=== PATIENT | female | born 1950 | race Caucasian/White ===

== ENCOUNTER 2016-11-10 00:07 | Emergency (ER) | payer MEDICARE, BC ==
[2016-11-10 00:37] VITALS: BP 197/73
[2016-11-10] MEDS ORDERED: Sodium Chloride 0.9% 5 ML Syringe FLUSH PRN (00:39)
[2016-11-10] MEDS ORDERED: Sodium Chloride 0.9% 1,000 ML IV STA (00:39)
[2016-11-10] MEDS ORDERED: Morphine 2 MG/ML Syringe IVPUSH ONE (00:46)
[2016-11-10] MEDS ORDERED: Ondansetron 4 MG/2 ML SDV IVPUSH ONE (00:46)
--- NOTE | 2016-11-10 00:47 | EDM.PDOC ---
ED HPI GENERAL MEDICAL PROBLEM - General Chief Complaint: Abdominal Pain Stated Complaint: Abdominal Pain Time Seen by Provider: 11/10/16 00:30 Source of Information: Reports: Patient History Limitations: Reports: No Limitations - History of Present Illness INITIAL COMMENTS - FREE TEXT/NARRATIVE: PT STATES SHE HAS HAD 3 CONSECUTIVE DAYS WITH ONE EPISODE OF ABD PAIN AND VOMITING, AND TONIGHT AT 2000 DEVELOPED WORSENING LOWER ABD PAIN AND VOMITED ONCE. DENIES CP, SOB, BOWEL CHANGES, BLOOD IN STOOL, FEVER, VAGINAL BLEEDING, OR CHANGE IN MEDICATION. Duration: Getting Worse Location: Reports: Abdomen Quality: Reports: Sharp Severity: Moderate Improves with: Reports: Other (SPONTANEOUSLY) Associated Symptoms: Reports: Nausea/Vomiting Lower Abdominal Pain Score (Numeric/FACES): 10 - Related Data Allergies Allergy/AdvReac Type Severity Reaction Status Date / Time No Known Drug Allergies Allergy none Verified 11/10/16 00:20 Home Meds: Home Meds Aspirin [Ecotrin] 81 mg PO DAILY 11/10/16 [History] Ciprofloxacin [Cipro] 500 mg PO BID #20 tab 11/10/16 [Rx] Insulin Aspart [NovoLOG] 4 - 15 units SUBCUT QID PRN 11/10/16 [History] Insulin Glarg,Human.Rec.Analog [LantUS Solostar] 10 units SUBCUT BEDTIME [History] Lisinopril [Prinivil] 2.5 mg PO DAILY 11/10/16 [History] Metoprolol Tartrate 25 mg PO BID 11/10/16 [History] Ondansetron [Zofran ODT] 4 mg PO Q6H #10 tab.dis 11/10/16 [Rx] Phenazopyridine HCl [Pyridium] 100 mg PO TID #6 tablet 11/10/16 [Rx] Prasugrel HCl [Effient] 10 mg PO DAILY 11/10/16 [History] atorvaSTATin [Lipitor] 40 mg PO DAILY 11/10/16 [History] Past Medical History HEENT History: Reports: Cataract, Impaired Vision Gastrointestinal History: Reports: None Genitourinary History: Reports: None 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: - Infectious Disease History Infectious Disease History: Reports: Chicken Pox, Measles, Shingles - Past Surgical History HEENT Surgical History: Reports: Cataract Surgery, Tonsillectomy Female Surgical History: Reports: D&C, Tubal Ligation Social & Family History - Tobacco Use Smoking Status *Q: Never Smoker Years of Tobacco use: 2 Month Tobacco Last Used: 50 yrs ago - Caffeine Use Caffeine Use: Reports: Soda Other Caffeine Use: alot of coke - Alcohol Use Days Per Week of Alcohol Use: 0 - Recreational Drug Use Recreational Drug Use: No ED ROS GENERAL - Review of Systems Review Of Systems: ROS reveals no pertinent complaints other than HPI. Constitutional: Reports: No Symptoms HEENT: Reports: No Symptoms Respiratory: Reports: No Symptoms Cardiovascular: Reports: No Symptoms Endocrine: Reports: No Symptoms GI/Abdominal: Reports: Abdominal Pain, Nausea, Vomiting : Reports: No Symptoms Musculoskeletal: Reports: No Symptoms Skin: Reports: No Symptoms Neurological: Reports: No Symptoms Psychiatric: Reports: No Symptoms Hematologic/Lymphatic: Reports: No Symptoms Immunologic: Reports: No Symptoms ED EXAM, GI/ABD - Physical Exam Exam: See Below Exam Limited By: No Limitations General Appearance: Alert, WD/WN, No Apparent Distress Eyes: Bilateral: Normal Appearance Throat/Mouth: Normal Inspection, Normal Oropharynx, No Airway Compromise Head: Atraumatic, Normocephalic Neck: Normal Inspection Respiratory/Chest: No Respiratory Distress, Lungs Clear, Normal Breath Sounds, No Accessory Muscle Use, Chest Non-Tender Cardiovascular: Regular Rate, Rhythm, No Murmur GI/Abdominal: Normal Bowel Sounds, Soft, No Organomegaly, No Distention, No Abnormal Bruit, No Mass, Tenderness (LOWER ABD) Back Exam: Normal Inspection. No: CVA Tenderness (L), CVA Tenderness (R) Extremities: Normal Inspection, Non-Tender, No Pedal Edema, Normal Capillary Refill. No: Leg Pain Neurological: Alert, Oriented, Normal Cognition Psychiatric: Normal Affect, Normal Mood Skin Exam: Warm, Dry, Intact, Normal Color, No Rash Lymphatic: No Adenopathy Course - Vital Signs Last Recorded V/S: Last Vital Signs Temp 97.4 F 11/10/16 00:30 Pulse 75 11/10/16 00:30 Resp 18 11/10/16 00:30 BP 197/73 H 11/10/16 00:30 Pulse Ox 96 11/10/16 00:30 - Orders/Labs/Meds Orders: Active Orders 24 hr Category Date Time Status Peripheral IV Care [RC] . DIRECTED Care 11/10/16 00:41 Ordered Abdomen Pelvis w Cont [CT] Stat Exams 11/10/16 00:39 Ordered CBC WITH AUTO DIFF [HEME] Stat Lab 11/10/16 00:39 Ordered COMPREHENSIVE METABOLIC PN,CMP [CHEM] Stat Lab 11/10/16 00:39 Ordered LIPASE [CHEM] Stat Lab 11/10/16 00:39 Ordered UA W/MICROSCOPIC [URIN] Stat Lab 11/10/16 00:39 Uncollected Sodium Chloride 0.9% [Normal Saline] 1,000 ml Med 11/10/16 00:39 Ordered IV .BOLUS Sodium Chloride 0.9% [Syrex Flush] Med 11/10/16 00:39 Ordered 5 ml FLUSH Q8HR PRN Peripheral IV Insertion Adult [OM.PC] Stat Oth 11/10/16 00:39 Ordered - Re-Assessments/Exams Free Text/Narrative Re-Assessment/Exam: 11/10/16 02:31 PT AFEBRILE, NONTOXIC APPEARING, PAIN RELIEVED. ROCEPHIN GIVEN Departure - Departure Time of Disposition: 02:38 Disposition: Home, Self-Care 01 Condition: good Clinical Impression: UTI (urinary tract infection) - Discharge Information Instructions: Nausea and Vomiting, Adult, [id number], Abdominal Pain, Adult, [id number], Urinary Tract Infection, Adult Forms: ED Department Discharge Additional Instructions: FOLLOW UP WITH YOUR PRIMARY DOCTOR IN 3-5 DAYS. RETURN TO ER SOONER IF SYMPTOMS CONTINUE - My Orders Last 24 Hours: My Active Orders 11/10/16 00:39 Abdomen Pelvis w Cont [CT] Stat CBC WITH AUTO DIFF [HEME] Stat COMPREHENSIVE METABOLIC PN,CMP [CHEM] Stat LIPASE [CHEM] Stat UA W/MICROSCOPIC [URIN] Stat Sodium Chloride 0.9% [Normal Saline] 1,000 ml IV .BOLUS Sodium Chloride 0.9% [Syrex Flush] 5 ml FLUSH Q8HR PRN Peripheral IV Insertion Adult [OM.PC] Stat 11/10/16 00:41 Peripheral IV Care [RC] . DIRECTED - Assessment/Plan Last 24 Hours: My Active Orders 11/10/16 00:39 Abdomen Pelvis w Cont [CT] Stat CBC WITH AUTO DIFF [HEME] Stat COMPREHENSIVE METABOLIC PN,CMP [CHEM] Stat LIPASE [CHEM] Stat UA W/MICROSCOPIC [URIN] Stat Sodium Chloride 0.9% [Normal Saline] 1,000 ml IV .BOLUS Sodium Chloride 0.9% [Syrex Flush] 5 ml FLUSH Q8HR PRN Peripheral IV Insertion Adult [OM.PC] Stat 11/10/16 00:41 Peripheral IV Care [RC] . DIRECTED Assessment:: UTI Plan: CIPRO / PYRIDIUM / F-U WITH PCP IN 3-5 DAYS
[2016-11-10] MEDS ORDERED: Iopamidol 612 MG/ML 75 ML Bottle IVPUSH ONE (00:52)
[2016-11-10] MEDS ORDERED: Sodium Chloride 0.9% 50 ML SDV FLUSH SCH (01:00)
[2016-11-10 01:02] LABS: CHLORIDE,CL 100 mmol/L (98-115); SODIUM,NA 137 mmol/L (136-145)
[2016-11-10] MEDS ORDERED: cefTRIAXone 1 GM Vial IVPUSH ONE (01:31)
== END 2016-11-10 02:45 | disposition home or self-care (01) ==
LOC: KA.ED 00:07
DX: N39.0 Urinary tract infection, site not specified (principal); Z79.82 Long term (current) use of aspirin; Z79.4 Long term (current) use of insulin; Z79.899 Other long term (current) drug therapy
CPT/HCPCS: 36415; 74177; 80053; 81001; 83690; 85025; 87086; 87088; 96361; 96374; 96375; 99284; J0696; J2270; J2405; J7030; Q9967; 87186

== ENCOUNTER 2017-12-25 07:07 | Emergency (ER) | payer MEDICARE, BC ==
[2017-12-25] MEDS ORDERED: Sodium Chloride 0.9% 5 ML Syringe FLUSH PRN (07:25)
[2017-12-25 07:30] VITALS: BP 122/64
[2017-12-25] MEDS: Ondansetron 4 MG/2 ML SDV IVPUSH ONE (07:44)
[2017-12-25] MEDS: Sodium Chloride 0.9% 1,000 ML ONE (08:41)
[2017-12-25] MEDS: Sodium Chloride 0.9% 1,000 ML IV SCH (08:41)
[2017-12-25 09:18] LABS: ANION GAP 23.1 mmol/L (5-15); CHLORIDE,CL 104 mmol/L (98-115); SODIUM,NA 142 mmol/L (136-145)
[2017-12-25] MEDS: Ketorolac 30 MG/ML SDV IVPUSH ONE (10:09)
[2017-12-25] MEDS: Ondansetron 4 MG Tab.DIS PO ONE (11:11)
[2017-12-25] MEDS: Meclizine 25 MG Tab PO ONE (11:11)
== END 2017-12-25 13:00 | disposition home or self-care (01) ==
LOC: KA.ED 07:07
DX: H81.10 Benign paroxysmal vertigo, unspecified ear (principal); I25.10 Atherosclerotic heart disease of native coronary artery without angina pectoris; E78.5 Hyperlipidemia, unspecified; E11.9 Type 2 diabetes mellitus without complications; Z95.1 Presence of aortocoronary bypass graft
CPT/HCPCS: 70450; 71046; 80053; 81001; 82550; 82553; 82962; 84484; 85025; 93005; 96361; 96374; 96375; 99284; A9270-GY; J1885; J2405; J7030

== ENCOUNTER 2021-02-06 20:43 | Inpatient (IN) | payer MEDICARE, BC ==
[2021-02-06] MEDS ORDERED: Sodium Chloride 0.9% 1,000 ML IV ONE (20:55)
[2021-02-06] MEDS ORDERED: Sodium Chloride 0.9% 10 ML Syringe FLUSH PRN (20:55)
--- NOTE | 2021-02-06 21:04 | EDM.PDOC ---
ED HPI GENERAL MEDICAL PROBLEM - General Chief Complaint: General Stated Complaint: HYPERGLYCEMIA Time Seen by Provider: 02/06/21 20:45 Source of Information: Reports: Patient History Limitations: Reports: No Limitations - History of Present Illness INITIAL COMMENTS - FREE TEXT/NARRATIVE: 70 YO WF PRESENTS TO ER WITH COMPLAINTS OF ELEVATED BLOOD SUGARS WITH POLYDIPSIA, POLYURIA, AND LIGHTHEADEDNESS WHICH HAS BEEN ON/OFF X 1 WEEK. PT REPORTS SHE HASN'T BEEN TAKING HER INSULIN FOR HER TYPE 1 DIABETES BECAUSE IT'S TOO EXPENSIVE. PT DENIES CHEST PAIN, SHORTNES OF BREATH, DIAPHORESIS OR NAUSEA/VOMITING. PT DENIES FEVER/CHILLS, NO RECENT ILLNESSES, NO COUGH/CONGESTION OR KNOWN COVID EXPOSURES. PT DENIES ABDOMINAL PAIN OR CONSTIPATION/DIARRHEA. PT DENIES DYSURIA OR URGENCY BUT STATES SHE HAS HAD URINARY FREQENCY OVER THE LAST 2 WEEKS. PT IS ALERT AND ORIENTED X 4 WITHOUT CONFUSION. Onset: Unknown/Unsure Duration: Getting Worse Location: Reports: Generalized Severity: Moderate Improves with: Reports: None Worsens with: Reports: None Associated Symptoms: Reports: Weakness. Denies: Confusion, Chest Pain, Cough, cough w sputum, Diaphoresis, Fever/Chills, Headaches, Loss of Appetite, Nausea/Vomiting, Rash, Seizure, Shortness of Breath - Related Data Allergies Allergy/AdvReac Type Severity Reaction Status Date / Time No Known Drug Allergies Allergy none Verified 05/13/18 19:20 Home Meds: Home Meds Aspirin [Ecotrin EC] 81 mg PO DAILY 11/10/16 [History] Metoprolol Tartrate 25 mg PO BID 11/10/16 [History] Prasugrel HCl [Effient] 10 mg PO DAILY 11/10/16 [History] Insulin Degludec [Tresiba Flextouch U-200] 20 units SQ BEDTIME 12/25/17 [History] metFORMIN HCl [Metformin HCl] 500 mg PO BID 12/25/17 [History] Fluconazole [Diflucan] 150 mg PO ONETIME #2 tab 05/13/18 [Rx] Past Medical History HEENT History: Reports: Cataract, Impaired Vision Cardiovascular History: Reports: Hypertension, [place], Stents Gastrointestinal History: Reports: None Genitourinary History: Reports: None 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: Neurological History: Reports: Headaches, Chronic Endocrine/Metabolic History: Reports: Diabetes, Type II - Infectious Disease History Infectious Disease History: Reports: Chicken Pox, Measles, Shingles - Past Surgical History HEENT Surgical History: Reports: Cataract Surgery, Tonsillectomy Cardiovascular Surgical History: Reports: Coronary Artery Stent Female Surgical History: Reports: D&C, Tubal Ligation Social & Family History - Family History Family Medical History: No Pertinent Family History - Caffeine Use Caffeine Use: Reports: Soda Other Caffeine Use: alot of coke ED ROS GENERAL - Review of Systems Review Of Systems: See Below Constitutional: Reports: Weakness HEENT: Reports: No Symptoms Respiratory: Reports: No Symptoms Cardiovascular: Reports: No Symptoms Endocrine: Reports: No Symptoms GI/Abdominal: Reports: No Symptoms : Reports: Frequency Musculoskeletal: Reports: No Symptoms Skin: Reports: No Symptoms Neurological: Reports: Dizziness Psychiatric: Reports: No Symptoms Hematologic/Lymphatic: Reports: No Symptoms ED EXAM, GENERAL - Physical Exam Exam: See Below Exam Limited By: No Limitations General Appearance: Alert, WD/WN, No Apparent Distress Throat/Mouth: Normal Inspection, Normal Lips, Normal Teeth, Normal Gums, Normal Oropharynx, Normal Voice, No Airway Compromise Head: Atraumatic, Normocephalic Neck: Normal Inspection, Supple, Non-Tender, Full Range of Motion Respiratory/Chest: No Respiratory Distress, Lungs Clear, Normal Breath Sounds, No Accessory Muscle Use, Chest Non-Tender Cardiovascular: Normal Peripheral Pulses, Regular Rate, Rhythm, No Edema, No Gallop, No JVD, No Murmur, No Rub GI/Abdominal: Normal Bowel Sounds, Soft, Non-Tender, No Organomegaly, No Distention, No Abnormal Bruit, No Mass Back Exam: Normal Inspection, Full Range of Motion, NT Extremities: Normal Inspection, Normal Range of Motion, Non-Tender, Normal Capillary Refill, No Pedal Edema Neurological: Alert, Oriented, CN II-XII Intact, Normal Cognition, Normal Gait, No Motor/Sensory Deficits Psychiatric: Normal Affect, Normal Mood Skin Exam: Warm, Dry, Intact, Normal Color, No Rash Course - Orders/Labs/Meds Orders: Active Orders 24 hr Category Date Time Status Peripheral IV Care [RC] . DIRECTED Care 02/06/21 20:55 Active Chest 2V [CR] Stat Exams 02/06/21 20:55 Taken ACETONE,URINE [URCHEM] Stat Lab 02/06/21 20:55 Ordered CORONAVIRUS COVID-19 RAPID [MOLEC] Stat Lab 02/06/21 20:55 Ordered UA W/MICROSCOPIC [URIN] Stat Lab 02/06/21 20:55 Ordered Sodium Chloride 0.9% [Saline Flush] Med 02/06/21 20:55 Active 10 ml FLUSH Q8HR PRN Peripheral IV Insertion Adult [OM.PC] Routine Oth 02/06/21 20:55 Ordered Medication Orders Sodium Chloride (Sodium Chloride 0.9% 10 Ml Syringe) 10 ml FLUSH Q8HR PRN PRN Reason: keep vein open Labs: Laboratory Tests 02/06/21 02/06/21 02/06/21 Range/Units 20:49 20:55 20:55 WBC 5.96 (5.00-10.00) 10^3/uL RBC 5.49 (3.80-5.50) 10^6/uL Hgb 16.0 (12.0-16.0) g/dL Hct 43.8 (37.0-47.0) % MCV 79.8 L D (82.0-92.0) fL MCH 29.1 (27.0-31.0) pg MCHC 36.5 H (32.0-36.0) g/dL RDW 11.7 (11.5-14.5) % Plt Count 198 (150-400) 10^3/uL MPV 11.3 H (7.4-10.4) fL Immature Gran % (Auto) 0.2 (0.0-5.0) % Neut % (Auto) 54.8 (50.0-70.0) % Lymph % (Auto) 35.4 (20.0-40.0) % [place] % (Auto) 8.4 H (2.0-8.0) % Eos % (Auto) 0.7 L (1.0-3.0) % Baso % (Auto) 0.5 (0.0-1.0) % Neut # (Auto) 3.27 (2.50-7.00) 10^3/uL Lymph # (Auto) 2.11 (1.00-4.00) 10^3/uL [place] # (Auto) 0.50 (0.10-0.80) 10^3/uL Eos # (Auto) 0.04 L (0.10-0.30) 10^3/uL Baso # (Auto) 0.03 (0.00-0.10) 10^3/uL Immature Gran # (Auto) 0.01 (0.00-0.50) 10^3/uL VBG pH 7.50 H (7.31-7.41) VBG pCO2 37 L (41-51) mmHG VBG pO2 17 mmHG VBG HCO3 29 H (23-28) mmol/L VBG Total CO2 29 mmol/L VBG O2 Saturation 29 % VBG Base Excess 6 H ((-2)-3) mmol/L O2 Delivery Device Room air Sodium (136-145) mmol/L Potassium (3.5-5.1) mmol/L Chloride (98-107) mmol/L Carbon Dioxide (21.0-32.0) mmol/L Anion Gap (5-15) mmol/L BUN (7-18) mg/dL Creatinine (0.51-1.17) mg/dL Est Cr Clr Drug Dosing Estimated GFR (MDRD) mL/min Glucose (70-140) mg/dL POC Glucose > 600 H* (70-140) mg/dL Calcium (8.7-10.3) mg/dL Total Bilirubin (0.2-1.0) mg/dL AST (15-37) U/L ALT (14-63) U/L Alkaline Phosphatase (46-116) U/L Total Protein (6.4-8.2) g/dL Albumin (3.40-5.00) g/dL 02/06/21 Range/Units 20:55 WBC (5.00-10.00) 10^3/uL RBC (3.80-5.50) 10^6/uL Hgb (12.0-16.0) g/dL Hct (37.0-47.0) % MCV (82.0-92.0) fL MCH (27.0-31.0) pg MCHC (32.0-36.0) g/dL RDW (11.5-14.5) % Plt Count (150-400) 10^3/uL MPV (7.4-10.4) fL Immature Gran % (Auto) (0.0-5.0) % Neut % (Auto) (50.0-70.0) % Lymph % (Auto) (20.0-40.0) % [place] % (Auto) (2.0-8.0) % Eos % (Auto) (1.0-3.0) % Baso % (Auto) (0.0-1.0) % Neut # (Auto) (2.50-7.00) 10^3/uL Lymph # (Auto) (1.00-4.00) 10^3/uL [place] # (Auto) (0.10-0.80) 10^3/uL Eos # (Auto) (0.10-0.30) 10^3/uL Baso # (Auto) (0.00-0.10) 10^3/uL Immature Gran # (Auto) (0.00-0.50) 10^3/uL VBG pH (7.31-7.41) VBG pCO2 (41-51) mmHG VBG pO2 mmHG VBG HCO3 (23-28) mmol/L VBG Total CO2 mmol/L VBG O2 Saturation % VBG Base Excess ((-2)-3) mmol/L O2 Delivery Device Sodium 134 L (136-145) mmol/L Potassium 2.5 L (3.5-5.1) mmol/L Chloride 91 L (98-107) mmol/L Carbon Dioxide 30.3 (21.0-32.0) mmol/L Anion Gap 15.2 H (5-15) mmol/L BUN 16 (7-18) mg/dL Creatinine 1.18 H (0.51-1.17) mg/dL Est Cr Clr Drug Dosing TNP Estimated GFR (MDRD) 45 mL/min Glucose > 500 H (70-140) mg/dL POC Glucose (70-140) mg/dL Calcium 9.9 (8.7-10.3) mg/dL Total Bilirubin 0.8 (0.2-1.0) mg/dL AST 20 (15-37) U/L ALT 28 (14-63) U/L Alkaline Phosphatase 70 (46-116) U/L Total Protein 7.1 (6.4-8.2) g/dL Albumin 3.64 (3.40-5.00) g/dL Meds: Medications Generic Name Dose Route Start Last Admin Trade Name Freq PRN Reason Stop Dose Admin Sodium Chloride 10 ml 02/06/21 20:55 Sodium Chloride 0.9% 10 Ml Syringe FLUSH Q8HR PRN keep vein open Discontinued Medications Generic Name Dose Route Start Last Admin Trade Name Fina PRN Reason Stop Dose Admin Sodium Chloride 1,000 mls @ 999 mls/hr 02/06/21 20:55 Normal Saline IV 02/06/21 21:55 .BOLUS ONE Insulin Human Regular 15 unit 02/06/21 21:31 Insulin Regular, Human 100 Units/Ml 10 Ml Vial SUBCUT 02/06/21 21:32 ONETIME ONE Departure - Departure Time of Disposition: 22:21 Disposition: Admitted As Inpatient 64 Condition: Fair Clinical Impression: Hyperosmolar hyperglycemic state (HHS), Hypokalemia - Discharge Information Referrals: Karen Perrin MD [Physician] - Forms: ED Department Discharge - My Orders Last 24 Hours: My Active Orders 02/06/21 20:55 Peripheral IV Care [RC] . DIRECTED Chest 2V [CR] Stat ACETONE,URINE [URCHEM] Stat CORONAVIRUS COVID-19 RAPID [MOLEC] Stat UA W/MICROSCOPIC [URIN] Stat Sodium Chloride 0.9% [Saline Flush] 10 ml FLUSH Q8HR PRN Peripheral IV Insertion Adult [OM.PC] Routine - Assessment/Plan Last 24 Hours: My Active Orders 02/06/21 20:55 Peripheral IV Care [RC] . DIRECTED Chest 2V [CR] Stat ACETONE,URINE [URCHEM] Stat CORONAVIRUS COVID-19 RAPID [MOLEC] Stat UA W/MICROSCOPIC [URIN] Stat Sodium Chloride 0.9% [Saline Flush] 10 ml FLUSH Q8HR PRN Peripheral IV Insertion Adult [OM.PC] Routine Assessment:: 1. HYPEROSMOLAR HYPERGLYCEMIA 2. HYPOKALEMIA MOST LIKELY DUE TO SIGNIFICANT HYPERGLYCEMIA Plan: 1. ADMIT TO MEDICINE- [facility]-ACCEPTED ADMISSION @22:15 2. CONTINUE IVF 3. INSULIN PER SLIDING SCALE 4. WATCH POTASSIUM AND CORRECT NEEDED 5. SUPPORTIVE CARE 6. ALL ADMISSION ORDERS PER [facility]
[2021-02-06 21:19] LABS: O2 DELIVERY DEVICE ROOM AIR
[2021-02-06 21:21] LABS: PCO2 VENOUS 37 mmHG (41-51)
[2021-02-06 21:22] LABS: BASE EXCESS VENOUS 6 mmol/L ((-2)-3); BICARBONATE,VENOUS 29 mmol/L (23-28); O2 SATURATION VENOUS 29 %; PO2 VENOUS 17 mmHG
[2021-02-06] MEDS ORDERED: Insulin Regular, Human 100 Units/ML 10 ML Vial SUBCUT ONE (21:31)
[2021-02-06 21:36] LABS: ANION GAP 15.2 mmol/L (5-15); CHLORIDE,CL 91 mmol/L (98-107); SODIUM,NA 134 mmol/L (136-145)
--- NOTE | 2021-02-06 22:58 | PCM.HP.2 ---
H&P History of Present Illness - General Date of Service: 02/06/21 Admit Problem/Dx: Admission Diagnosis/Problem Admission Diagnosis/Problem Hyperosmolality with hypernatremia - Related Data Allergies/Adverse Reactions: Allergies Allergy/AdvReac Type Severity Reaction Status Date / Time No Known Drug Allergies Allergy none Verified 05/13/18 19:20 Home Medications: Home Meds Aspirin [Ecotrin EC] 81 mg PO DAILY 11/10/16 [History] Metoprolol Tartrate 25 mg PO BID 11/10/16 [History] Clopidogrel [Plavix] 75 mg PO DAILY 02/06/21 [History] Rosuvastatin Calcium 20 mg PO BEDTIME 02/06/21 [History] Past Medical History HEENT History: Reports: Cataract, Impaired Vision Cardiovascular History: Reports: Hypertension, [place], Stents Gastrointestinal History: Reports: None Genitourinary History: Reports: None TELLER History: Reports: Neurological History: Reports: Headaches, Chronic Endocrine/Metabolic History: Reports: Diabetes, Type II - Infectious Disease History Infectious Disease History: Reports: Chicken Pox, Measles, Shingles - Past Surgical History HEENT Surgical History: Reports: Cataract Surgery, Tonsillectomy Cardiovascular Surgical History: Reports: Coronary Artery Stent Female Surgical History: Reports: D&C, Tubal Ligation Social & Family History - Family History Family Medical History: No Pertinent Family History - Caffeine Use Caffeine Use: Reports: Soda Other Caffeine Use: alot of coke H&P Review of Systems - Review of Systems: Review Of Systems: See Below General: Reports: Fatigue HEENT: Reports: Headaches (occasional) Pulmonary: Reports: Shortness of Breath (intermittent with activity) Cardiovascular: Reports: Lightheadedness. Denies: Chest Pain, Palpitations, Edema Gastrointestinal: Reports: No Symptoms. Denies: Abdominal Pain, Nausea Genitourinary: Reports: Frequency. Denies: Dysuria, Urgency, Hematuria, Flank Pain Musculoskeletal: Reports: No Symptoms Skin: Reports: No Symptoms Psychiatric: Reports: No Symptoms Neurological: Reports: No Symptoms Hematologic/Lymphatic: Reports: No Symptoms Immunologic: Reports: No Symptoms Exam - Exam Exam: See Below - Exam Quality Assessment: No: Supplemental Oxygen General: Alert, Oriented, Cooperative. No: Mild Distress HEENT: Conjunctiva Clear, Mucosa Moist & [place] Neck: Supple, Trachea Midline Lungs: Clear to Auscultation, Normal Respiratory Effort Cardiovascular: Regular Rate, Regular Rhythm GI/Abdominal Exam: Normal Bowel Sounds, Soft, Non-Tender (Female) Exam: Deferred Rectal (Female) Exam: Deferred Back Exam: Normal Inspection, Full Range of Motion Extremities: Normal Inspection, Normal Range of Motion, Non-Tender, No Pedal Edema, Normal Capillary Refill Peripheral Pulses: 2+: Dorsalis Pedis (L), Dorsalis Pedis (R) Skin: Warm, Dry, Intact Neuro Extensive - Mental Status: Alert, Oriented x3, Normal Mood/Affect Psychiatric: Alert, Normal Affect, Normal Mood - Patient Data Lab Results Last 24 hrs: Laboratory Results - last 24 hr 02/06/21 02/06/21 02/06/21 Range/Units 20:49 20:55 20:55 WBC 5.96 (5.00-10.00) 10^3/uL RBC 5.49 (3.80-5.50) 10^6/uL Hgb 16.0 (12.0-16.0) g/dL Hct 43.8 (37.0-47.0) % MCV 79.8 L D (82.0-92.0) fL MCH 29.1 (27.0-31.0) pg MCHC 36.5 H (32.0-36.0) g/dL RDW 11.7 (11.5-14.5) % Plt Count 198 (150-400) 10^3/uL MPV 11.3 H (7.4-10.4) fL Immature Gran % (Auto) 0.2 (0.0-5.0) % Neut % (Auto) 54.8 (50.0-70.0) % Lymph % (Auto) 35.4 (20.0-40.0) % Carver % (Auto) 8.4 H (2.0-8.0) % Eos % (Auto) 0.7 L (1.0-3.0) % Baso % (Auto) 0.5 (0.0-1.0) % Neut # (Auto) 3.27 (2.50-7.00) 10^3/uL Lymph # (Auto) 2.11 (1.00-4.00) 10^3/uL Carver # (Auto) 0.50 (0.10-0.80) 10^3/uL Eos # (Auto) 0.04 L (0.10-0.30) 10^3/uL Baso # (Auto) 0.03 (0.00-0.10) 10^3/uL Immature Gran # (Auto) 0.01 (0.00-0.50) 10^3/uL VBG pH (7.31-7.41) VBG pCO2 (41-51) mmHG VBG pO2 mmHG VBG HCO3 (23-28) mmol/L VBG Total CO2 mmol/L VBG O2 Saturation % VBG Base Excess ((-2)-3) mmol/L O2 Delivery Device Sodium (136-145) mmol/L Potassium (3.5-5.1) mmol/L Chloride (98-107) mmol/L Carbon Dioxide (21.0-32.0) mmol/L Anion Gap (5-15) mmol/L BUN (7-18) mg/dL Creatinine (0.51-1.17) mg/dL Est Cr Clr Drug Dosing Estimated GFR (MDRD) mL/min Glucose (70-140) mg/dL POC Glucose > 600 H* (70-140) mg/dL Calcium (8.7-10.3) mg/dL Total Bilirubin (0.2-1.0) mg/dL AST (15-37) U/L ALT (14-63) U/L Alkaline Phosphatase (46-116) U/L Total Protein (6.4-8.2) g/dL Albumin (3.40-5.00) g/dL Specimen Type Urine Color (YELLOW) Urine Appearance (CLEAR) Urine pH (5.0-9.0) Ur Specific [place] (1.005-1.030) Urine Protein (NEGATIVE) mg/dL Urine Glucose (UA) (NEGATIVE) mg/dL Urine Ketones (NEGATIVE) mg/dL Urine Occult Blood (NEGATIVE) Urine Nitrite (NEGATIVE) Urine Bilirubin (NEGATIVE) Urine Urobilinogen (0.2-1.0) E.U./dL Ur Leukocyte Esterase (NEGATIVE) Urine RBC (0-5) /HPF Urine WBC (0-5) /HPF Ur Epithelial Cells /LPF Urine Bacteria (NONE TO FEW) /HPF SARS CoV-2 RNA Rapid JUNE Negative (NEGATIVE) 08/20/21 08/20/21 08/20/21 Range/Units 20:55 20:55 21:55 WBC (5.00-10.00) 10^3/uL RBC (3.80-5.50) 10^6/uL Hgb (12.0-16.0) g/dL Hct (37.0-47.0) % MCV (82.0-92.0) fL MCH (27.0-31.0) pg MCHC (32.0-36.0) g/dL RDW (11.5-14.5) % Plt Count (150-400) 10^3/uL MPV (7.4-10.4) fL Immature Gran % (Auto) (0.0-5.0) % Neut % (Auto) (50.0-70.0) % Lymph % (Auto) (20.0-40.0) % Carver % (Auto) (2.0-8.0) % Eos % (Auto) (1.0-3.0) % Baso % (Auto) (0.0-1.0) % Neut # (Auto) (2.50-7.00) 10^3/uL Lymph # (Auto) (1.00-4.00) 10^3/uL Carver # (Auto) (0.10-0.80) 10^3/uL Eos # (Auto) (0.10-0.30) 10^3/uL Baso # (Auto) (0.00-0.10) 10^3/uL Immature Gran # (Auto) (0.00-0.50) 10^3/uL VBG pH 7.50 H (7.31-7.41) VBG pCO2 37 L (41-51) mmHG VBG pO2 17 mmHG VBG HCO3 29 H (23-28) mmol/L VBG Total CO2 29 mmol/L VBG O2 Saturation 29 % VBG Base Excess 6 H ((-2)-3) mmol/L O2 Delivery Device Room air Sodium 134 L (136-145) mmol/L Potassium 2.5 L (3.5-5.1) mmol/L Chloride 91 L (98-107) mmol/L Carbon Dioxide 30.3 (21.0-32.0) mmol/L Anion Gap 15.2 H (5-15) mmol/L BUN 16 (7-18) mg/dL Creatinine 1.18 H (0.51-1.17) mg/dL Est Cr Clr Drug Dosing TNP Estimated GFR (MDRD) 45 mL/min Glucose > 500 H (70-140) mg/dL POC Glucose (70-140) mg/dL Calcium 9.9 (8.7-10.3) mg/dL Total Bilirubin 0.8 (0.2-1.0) mg/dL AST 20 (15-37) U/L ALT 28 (14-63) U/L Alkaline Phosphatase 70 (46-116) U/L Total Protein 7.1 (6.4-8.2) g/dL Albumin 3.64 (3.40-5.00) g/dL Specimen Type Urinvoid Urine Color Yellow (YELLOW) Urine Appearance Clear (CLEAR) Urine pH 6.5 (5.0-9.0) Ur Specific [place] 1.010 (1.005-1.030) Urine Protein 100 H (NEGATIVE) mg/dL Urine Glucose (UA) 500 H (NEGATIVE) mg/dL Urine Ketones Negative (NEGATIVE) mg/dL Urine Occult Blood Small H (NEGATIVE) Urine Nitrite Negative (NEGATIVE) Urine Bilirubin Negative (NEGATIVE) Urine Urobilinogen 0.2 (0.2-1.0) E.U./dL Ur Leukocyte Esterase Negative (NEGATIVE) Urine RBC 0-5 (0-5) /HPF Urine WBC 0-5 (0-5) /HPF Ur Epithelial Cells Many H /LPF Urine Bacteria Rare (NONE TO FEW) /HPF SARS CoV-2 RNA Rapid JUNE (NEGATIVE) Result Diagrams: 02/06/21 20:55 02/06/21 20:55 Problem List Initiated/Reviewed/Updated: Yes Orders Last 24hrs: Active Orders 24 hr Category Date Time Status Patient Status [ADT] Routine ADT 02/06/21 22:26 Active Height and Weight [RC] DAILY Care 02/06/21 22:47 Ordered Intake and Output [RC] QSHIFT Care 02/06/21 22:48 Ordered Oxygen Therapy [RC] .PRN Care 02/06/21 22:26 Active Oxygen Therapy [RC] PRN Care 02/06/21 22:47 Ordered Peripheral IV Care [RC] . DIRECTED Care 02/06/21 20:55 Active Up With Assistance [RC] ASDIRECTED Care 02/06/21 22:47 Ordered VTE/DVT Education [RC] PER UNIT ROUTINE Care 02/06/21 22:26 Active VTE/DVT Education [RC] PER UNIT ROUTINE Care 02/06/21 22:47 Ordered Vital Signs [RC] 03,07,11,15,19,23 Care 02/06/21 22:26 Active Vital Signs [RC] Q4H Care 02/06/21 22:47 Ordered Consistent Carbohydrate Diet [DIET] Diet 02/07/21 Breakfast Ordered Heart Healthy Diet [DIET] Diet 02/07/21 Breakfast Ordered Chest 2V [CR] Stat Exams 02/06/21 20:55 Taken BASIC METABOLIC PANEL,BMP [CHEM] AM Lab 02/07/21 05:11 Ordered Sodium Chloride 0.9% [Normal Saline] 1,000 ml Med 02/06/21 23:00 Ordered IV ASDIRECTED Peripheral IV Insertion Adult [OM.PC] Routine Oth 02/06/21 20:55 Ordered Resuscitation Status Routine Resus Stat 02/06/21 22:26 Ordered Medication Orders Sodium Chloride (Normal Saline) 1,000 mls @ 200 mls/hr IV ASDIRECTED IVELISSE Assessment/Plan Comment:: HPI summary: Anjana is a 70y F patient who presented to the ER with c/o elevated blood sugars with polydipsia, polyuria and lightheadedness which has been occurring intermittently for the past week. She has been non-compliant with her insulin for her diabetes due to cost. She states she has not checked her blood sugar in over a year and she drinks a lot of coca-cola. She denies chest pain, shortness of breath, diaphoresis, N/V. No fever or chills. She denies dysuria, has been having urinary frequency for the past two weeks. She is alert and oriented. PMH of atherosclerotic heart disease with multivessel involvement. PCI to OM and LCX in 11/03 followed by PCI to RCA and LAD in 12/04; HTN, HLD, DMII. Last echo in 2018 - Normal EF of 65-70%, no indication of systolic or diastolic dysfunction. Patient to be admitted to [facility] inpatient service for correction of electrolytes, fluid resuscitation and insulin administration due to severe hyperglycemia. ED course: Vitals stable. CBC unremarkable. Na 144, K 2.5, Creatinine 1.18, BS > 600. Patient given a 1L NS bolus and 15 units regular insulin sub-q. VBG without indication of acidosis. Urine negative for ketones. CXR without acute process. Hospital course: 02/06/21: Patient resting in hospital bed upon admission. Endorses still feel ing lightheaded. No other complaints. Requesting a coca-cola and a cheeseburger. Lung sounds clear, HRR. No edema. Blood glucose 541 upon recheck after sub-q insulin given in ER. Will obtain Hgb A1C and BNP. KCl IV 20mEq to be given with BMP following - will continue to replace by IV until K is 3.3. Patient placed on telemetry given hypokalemia. IV fluids to be continued 1/2 NS due to corrected Na of ~ 144 prior to NS bolus in ER. Will infuse at 200ml/hr for 2 hours then decrease to 100ml/hr. Hospitalization problems and plan: # Hyperosmolar hyperglycemic nonketotic syndrome - Initial blood glucose > 600. Insulin of 15units regular sub-q given in ER. Repeat glucose of 541 after admission. - Obtain Hgb A1C - Plan to recheck blood glucose Q2H overnight. If > 400 at 0030, will give 10units regular insulin sub-q. - 1/2 NS @ 200ml/hr for 2 hours then decrease to 100ml/hr - will check BNP though no known hx of CHF # Hypokalemia - Initial result of 2.5 in ER - suspect further decrease in K due to insulin administration. - telemetry - Recheck BMP after admission - KCl IV 20mEq x 1 and recheck BMP following, will continue to replace KCl IV until K > 3.3. - Recheck BMP Q2H overnight Chronic, stable conditions: # HTN - continue metoprolol 25mg PO BID # CAD with hx of PCI - continue aspirin 81mg PO daily, plavix 75mg PO daily # Dyspnea on exertion # Familial hypercholesterolemia - continue rosuvastatin 20mg PO daily # Diabetes mellitus, type II - no current medications upon admission - used to be on metformin and tresiba # Medication non-compliance Hospitalization details: # FEN: 1/2 NS @ 200ml/hr for 2 hours, then decrease to 100ml/hr, KCl IV for hypokalemia, heart healthy/diabetic diet # PPX: On plavix, ASA # Code status: DNR/DNI # Emergency contact: # Disposition: I anticipate > 2 midnights of hospitalization for correction of electrolyte imbalances and severe hyperglycemia. Patient admitted under inpatient status.
[2021-02-06] MEDS ORDERED: Sodium Chloride 0.9% 1,000 ML IV SCH (23:00)
[2021-02-06] MEDS ORDERED: Potassium Chloride 20 MEQ in Premix Bag 1 BAG IV ONE (23:36)
[2021-02-07] MEDS: Sodium Chloride 0.45% 1,000 ML IV SCH ×4 (00:18→19:30)
[2021-02-07] MEDS: Metoprolol Tartrate 25 MG Tab PO SCH ×3 (00:20→20:10)
[2021-02-07] MEDS: Rosuvastatin 10 MG Tab PO SCH ×2 (00:20→20:09)
[2021-02-07 00:30] LABS: HEMOGLOBIN A1C > 14.0 % (4.3-5.7)
[2021-02-07 00:38] LABS: ANION GAP 11.6 mmol/L (5-15); CHLORIDE,CL 97 mmol/L (98-107); SODIUM,NA 136 mmol/L (136-145)
[2021-02-07] MEDS ORDERED: Acetaminophen 325 MG Tab PO PRN (03:02)
[2021-02-07 03:38] LABS: ANION GAP 12.8 mmol/L (5-15)
[2021-02-07] MEDS ORDERED: Potassium Chloride 20 MEQ in Premix Bag 1 BAG IV ONE ×4 (03:48→16:42)
[2021-02-07 07:36] LABS: ANION GAP 11.2 mmol/L (5-15); CHLORIDE,CL 100 mmol/L (98-107); SODIUM,NA 136 mmol/L (136-145)
[2021-02-07] MEDS ORDERED: Potassium Chloride 20 MEQ Packet PO ONE ×4 (08:15→17:45)
[2021-02-07] MEDS: Aspirin 81 MG Tab.EC PO SCH (08:47)
[2021-02-07] MEDS: Clopidogrel 75 MG Tab PO SCH (08:47)
--- NOTE | 2021-02-07 09:06 | CR ---
[id number] RAD/RAD Chest PA And Lateral EXAM: RAD Chest PA And Lateral INDICATION: DKA COMPARISON: 2017. DISCUSSION/IMPRESSION: Cardiomediastinal silhouette is unchanged from the prior examination. Lungs are clear. No pleural effusion or pneumothorax. Gildardo Chou MD 02/07/21 0904 Thank you for allowing us to participate in the care of your patient.
[2021-02-07 12:17] LABS: ANION GAP 15.8 mmol/L (5-15)
--- NOTE | 2021-02-07 12:18 | PCM.PN ---
- General Info Date of Service: 02/07/21 Functional Status: Reports: Urinating. Denies: New Symptoms - Review of Systems General: Reports: No Symptoms HEENT: Reports: Headaches (relieved by tylenol) Pulmonary: Reports: No Symptoms. Denies: Shortness of Breath, Cough Cardiovascular: Reports: No Symptoms. Denies: Chest Pain, Palpitations, Dyspnea on Exertion, Lightheadedness Gastrointestinal: Reports: No Symptoms. Denies: Abdominal Pain, Nausea Genitourinary: Reports: No Symptoms. Denies: Dysuria, Frequency, Urgency Musculoskeletal: Reports: No Symptoms Skin: Reports: No Symptoms Neurological: Reports: No Symptoms Psychiatric: Reports: No Symptoms - Patient Data Vitals - Most Recent: Last Vital Signs Temp 96.6 F L 02/07/21 11:00 Pulse 67 02/07/21 11:00 Resp 18 02/07/21 11:00 BP 121/67 02/07/21 11:00 Pulse Ox 100 02/07/21 11:00 Weight - Most Recent: 141 lb 3.2 oz I&O - Last 24 Hours: Intake & Output 02/06/21 02/07/21 02/07/21 22:59 06:59 14:59 Intake Total 995 1533 Balance 995 1533 Lab Results Last 24 Hours: Laboratory Results - last 24 hr 02/06/21 02/06/21 02/06/21 Range/Units 00:10 20:49 20:55 WBC (5.00-10.00) 10^3/uL RBC (3.80-5.50) 10^6/uL Hgb (12.0-16.0) g/dL Hct (37.0-47.0) % MCV (82.0-92.0) fL MCH (27.0-31.0) pg MCHC (32.0-36.0) g/dL RDW (11.5-14.5) % Plt Count (150-400) 10^3/uL MPV (7.4-10.4) fL Immature Gran % (Auto) (0.0-5.0) % Neut % (Auto) (50.0-70.0) % Lymph % (Auto) (20.0-40.0) % [place] % (Auto) (2.0-8.0) % Eos % (Auto) (1.0-3.0) % Baso % (Auto) (0.0-1.0) % Neut # (Auto) (2.50-7.00) 10^3/uL Lymph # (Auto) (1.00-4.00) 10^3/uL [place] # (Auto) (0.10-0.80) 10^3/uL Eos # (Auto) (0.10-0.30) 10^3/uL Baso # (Auto) (0.00-0.10) 10^3/uL Immature Gran # (Auto) (0.00-0.50) 10^3/uL VBG pH (7.31-7.41) VBG pCO2 (41-51) mmHG VBG pO2 mmHG VBG HCO3 (23-28) mmol/L VBG Total CO2 mmol/L VBG O2 Saturation % VBG Base Excess ((-2)-3) mmol/L O2 Delivery Device Sodium 136 (136-145) mmol/L Potassium 2.0 L* (3.5-5.1) mmol/L Chloride 97 L (98-107) mmol/L Carbon Dioxide 29.4 (21.0-32.0) mmol/L Anion Gap 11.6 (5-15) mmol/L BUN 13 (7-18) mg/dL Creatinine 1.04 (0.51-1.17) mg/dL Est Cr Clr Drug Dosing TNP Estimated GFR (MDRD) 52 mL/min Glucose 440 H (70-140) mg/dL POC Glucose > 600 H* (70-140) mg/dL Hemoglobin A1c > 14.0 H (4.3-5.7) % Calcium 9.0 (8.7-10.3) mg/dL Phosphorus (2.6-4.7) mg/dL Magnesium (1.8-2.4) mg/dL Total Bilirubin (0.2-1.0) mg/dL AST (15-37) U/L ALT (14-63) U/L Alkaline Phosphatase (46-116) U/L B-Natriuretic Peptide 52 (0-100) pg/mL Total Protein (6.4-8.2) g/dL Albumin (3.40-5.00) g/dL Specimen Type Urine Color (YELLOW) Urine Appearance (CLEAR) Urine pH (5.0-9.0) Ur Specific [place] (1.005-1.030) Urine Protein (NEGATIVE) mg/dL Urine Glucose (UA) (NEGATIVE) mg/dL Urine Ketones (NEGATIVE) mg/dL Urine Occult Blood (NEGATIVE) Urine Nitrite (NEGATIVE) Urine Bilirubin (NEGATIVE) Urine Urobilinogen (0.2-1.0) E.U./dL Ur Leukocyte Esterase (NEGATIVE) Urine RBC (0-5) /HPF Urine WBC (0-5) /HPF Ur Epithelial Cells /LPF Urine Bacteria (NONE TO FEW) /HPF SARS CoV-2 RNA Rapid JUNE Negative (NEGATIVE) 02/06/21 02/06/21 02/06/21 Range/Units 20:55 20:55 20:55 WBC 5.96 (5.00-10.00) 10^3/uL RBC 5.49 (3.80-5.50) 10^6/uL Hgb 16.0 (12.0-16.0) g/dL Hct 43.8 (37.0-47.0) % MCV 79.8 L D (82.0-92.0) fL MCH 29.1 (27.0-31.0) pg MCHC 36.5 H (32.0-36.0) g/dL RDW 11.7 (11.5-14.5) % Plt Count 198 (150-400) 10^3/uL MPV 11.3 H (7.4-10.4) fL Immature Gran % (Auto) 0.2 (0.0-5.0) % Neut % (Auto) 54.8 (50.0-70.0) % Lymph % (Auto) 35.4 (20.0-40.0) % [place] % (Auto) 8.4 H (2.0-8.0) % Eos % (Auto) 0.7 L (1.0-3.0) % Baso % (Auto) 0.5 (0.0-1.0) % Neut # (Auto) 3.27 (2.50-7.00) 10^3/uL Lymph # (Auto) 2.11 (1.00-4.00) 10^3/uL [place] # (Auto) 0.50 (0.10-0.80) 10^3/uL Eos # (Auto) 0.04 L (0.10-0.30) 10^3/uL Baso # (Auto) 0.03 (0.00-0.10) 10^3/uL Immature Gran # (Auto) 0.01 (0.00-0.50) 10^3/uL VBG pH 7.50 H (7.31-7.41) VBG pCO2 37 L (41-51) mmHG VBG pO2 17 mmHG VBG HCO3 29 H (23-28) mmol/L VBG Total CO2 29 mmol/L VBG O2 Saturation 29 % VBG Base Excess 6 H ((-2)-3) mmol/L O2 Delivery Device Room air Sodium 134 L (136-145) mmol/L Potassium 2.5 L (3.5-5.1) mmol/L Chloride 91 L (98-107) mmol/L Carbon Dioxide 30.3 (21.0-32.0) mmol/L Anion Gap 15.2 H (5-15) mmol/L BUN 16 (7-18) mg/dL Creatinine 1.18 H (0.51-1.17) mg/dL Est Cr Clr Drug Dosing TNP Estimated GFR (MDRD) 45 mL/min Glucose > 500 H (70-140) mg/dL POC Glucose (70-140) mg/dL Hemoglobin A1c (4.3-5.7) % Calcium 9.9 (8.7-10.3) mg/dL Phosphorus (2.6-4.7) mg/dL Magnesium (1.8-2.4) mg/dL Total Bilirubin 0.8 (0.2-1.0) mg/dL AST 20 (15-37) U/L ALT 28 (14-63) U/L Alkaline Phosphatase 70 (46-116) U/L B-Natriuretic Peptide (0-100) pg/mL Total Protein 7.1 (6.4-8.2) g/dL Albumin 3.64 (3.40-5.00) g/dL Specimen Type Urine Color (YELLOW) Urine Appearance (CLEAR) Urine pH (5.0-9.0) Ur Specific [place] (1.005-1.030) Urine Protein (NEGATIVE) mg/dL Urine Glucose (UA) (NEGATIVE) mg/dL Urine Ketones (NEGATIVE) mg/dL Urine Occult Blood (NEGATIVE) Urine Nitrite (NEGATIVE) Urine Bilirubin (NEGATIVE) Urine Urobilinogen (0.2-1.0) E.U./dL Ur Leukocyte Esterase (NEGATIVE) Urine RBC (0-5) /HPF Urine WBC (0-5) /HPF Ur Epithelial Cells /LPF Urine Bacteria (NONE TO FEW) /HPF SARS CoV-2 RNA Rapid JUNE (NEGATIVE) 02/06/21 02/06/21 02/07/21 Range/Units 21:55 23:00 00:36 WBC (5.00-10.00) 10^3/uL RBC (3.80-5.50) 10^6/uL Hgb (12.0-16.0) g/dL Hct (37.0-47.0) % MCV (82.0-92.0) fL MCH (27.0-31.0) pg MCHC (32.0-36.0) g/dL RDW (11.5-14.5) % Plt Count (150-400) 10^3/uL MPV (7.4-10.4) fL Immature Gran % (Auto) (0.0-5.0) % Neut % (Auto) (50.0-70.0) % Lymph % (Auto) (20.0-40.0) % [place] % (Auto) (2.0-8.0) % Eos % (Auto) (1.0-3.0) % Baso % (Auto) (0.0-1.0) % Neut # (Auto) (2.50-7.00) 10^3/uL Lymph # (Auto) (1.00-4.00) 10^3/uL [place] # (Auto) (0.10-0.80) 10^3/uL Eos # (Auto) (0.10-0.30) 10^3/uL Baso # (Auto) (0.00-0.10) 10^3/uL Immature Gran # (Auto) (0.00-0.50) 10^3/uL VBG pH (7.31-7.41) VBG pCO2 (41-51) mmHG VBG pO2 mmHG VBG HCO3 (23-28) mmol/L VBG Total CO2 mmol/L VBG O2 Saturation % VBG Base Excess ((-2)-3) mmol/L O2 Delivery Device Sodium (136-145) mmol/L Potassium (3.5-5.1) mmol/L Chloride (98-107) mmol/L Carbon Dioxide (21.0-32.0) mmol/L Anion Gap (5-15) mmol/L BUN (7-18) mg/dL Creatinine (0.51-1.17) mg/dL Est Cr Clr Drug Dosing Estimated GFR (MDRD) mL/min Glucose (70-140) mg/dL POC Glucose 541 H 413 H (70-140) mg/dL Hemoglobin A1c (4.3-5.7) % Calcium (8.7-10.3) mg/dL Phosphorus (2.6-4.7) mg/dL Magnesium (1.8-2.4) mg/dL Total Bilirubin (0.2-1.0) mg/dL AST (15-37) U/L ALT (14-63) U/L Alkaline Phosphatase (46-116) U/L B-Natriuretic Peptide (0-100) pg/mL Total Protein (6.4-8.2) g/dL Albumin (3.40-5.00) g/dL Specimen Type Urinvoid Urine Color Yellow (YELLOW) Urine Appearance Clear (CLEAR) Urine pH 6.5 (5.0-9.0) Ur Specific [place] 1.010 (1.005-1.030) Urine Protein 100 H (NEGATIVE) mg/dL Urine Glucose (UA) 500 H (NEGATIVE) mg/dL Urine Ketones Negative (NEGATIVE) mg/dL Urine Occult Blood Small H (NEGATIVE) Urine Nitrite Negative (NEGATIVE) Urine Bilirubin Negative (NEGATIVE) Urine Urobilinogen 0.2 (0.2-1.0) E.U./dL Ur Leukocyte Esterase Negative (NEGATIVE) Urine RBC 0-5 (0-5) /HPF Urine WBC 0-5 (0-5) /HPF Ur Epithelial Cells Many H /LPF Urine Bacteria Rare (NONE TO FEW) /HPF SARS CoV-2 RNA Rapid JUNE (NEGATIVE) 02/07/21 02/07/21 02/07/21 Range/Units 03:10 07:09 07:09 WBC (5.00-10.00) 10^3/uL RBC (3.80-5.50) 10^6/uL Hgb (12.0-16.0) g/dL Hct (37.0-47.0) % MCV (82.0-92.0) fL MCH (27.0-31.0) pg MCHC (32.0-36.0) g/dL RDW (11.5-14.5) % Plt Count (150-400) 10^3/uL MPV (7.4-10.4) fL Immature Gran % (Auto) (0.0-5.0) % Neut % (Auto) (50.0-70.0) % Lymph % (Auto) (20.0-40.0) % [place] % (Auto) (2.0-8.0) % Eos % (Auto) (1.0-3.0) % Baso % (Auto) (0.0-1.0) % Neut # (Auto) (2.50-7.00) 10^3/uL Lymph # (Auto) (1.00-4.00) 10^3/uL [place] # (Auto) (0.10-0.80) 10^3/uL Eos # (Auto) (0.10-0.30) 10^3/uL Baso # (Auto) (0.00-0.10) 10^3/uL Immature Gran # (Auto) (0.00-0.50) 10^3/uL VBG pH (7.31-7.41) VBG pCO2 (41-51) mmHG VBG pO2 mmHG VBG HCO3 (23-28) mmol/L VBG Total CO2 mmol/L VBG O2 Saturation % VBG Base Excess ((-2)-3) mmol/L O2 Delivery Device Sodium 137 136 (136-145) mmol/L Potassium 2.0 L* 2.3 L* (3.5-5.1) mmol/L Chloride 97 L 100 (98-107) mmol/L Carbon Dioxide 29.2 27.1 (21.0-32.0) mmol/L Anion Gap 12.8 11.2 (5-15) mmol/L BUN 13 11 (7-18) mg/dL Creatinine 0.96 0.91 (0.51-1.17) mg/dL Est Cr Clr Drug Dosing 43.82 46.23 Estimated GFR (MDRD) 57 > 60 mL/min Glucose 320 H 307 H (70-140) mg/dL POC Glucose (70-140) mg/dL Hemoglobin A1c (4.3-5.7) % Calcium 9.1 8.5 L (8.7-10.3) mg/dL Phosphorus (2.6-4.7) mg/dL Magnesium 1.9 (1.8-2.4) mg/dL Total Bilirubin (0.2-1.0) mg/dL AST (15-37) U/L ALT (14-63) U/L Alkaline Phosphatase 57 (46-116) U/L B-Natriuretic Peptide (0-100) pg/mL Total Protein (6.4-8.2) g/dL Albumin (3.40-5.00) g/dL Specimen Type Urine Color (YELLOW) Urine Appearance (CLEAR) Urine pH (5.0-9.0) Ur Specific [place] (1.005-1.030) Urine Protein (NEGATIVE) mg/dL Urine Glucose (UA) (NEGATIVE) mg/dL Urine Ketones (NEGATIVE) mg/dL Urine Occult Blood (NEGATIVE) Urine Nitrite (NEGATIVE) Urine Bilirubin (NEGATIVE) Urine Urobilinogen (0.2-1.0) E.U./dL Ur Leukocyte Esterase (NEGATIVE) Urine RBC (0-5) /HPF Urine WBC (0-5) /HPF Ur Epithelial Cells /LPF Urine Bacteria (NONE TO FEW) /HPF SARS CoV-2 RNA Rapid JUNE (NEGATIVE) 02/07/21 02/07/21 Range/Units 07:09 11:55 WBC (5.00-10.00) 10^3/uL RBC (3.80-5.50) 10^6/uL Hgb (12.0-16.0) g/dL Hct (37.0-47.0) % MCV (82.0-92.0) fL MCH (27.0-31.0) pg MCHC (32.0-36.0) g/dL RDW (11.5-14.5) % Plt Count (150-400) 10^3/uL MPV (7.4-10.4) fL Immature Gran % (Auto) (0.0-5.0) % Neut % (Auto) (50.0-70.0) % Lymph % (Auto) (20.0-40.0) % [place] % (Auto) (2.0-8.0) % Eos % (Auto) (1.0-3.0) % Baso % (Auto) (0.0-1.0) % Neut # (Auto) (2.50-7.00) 10^3/uL Lymph # (Auto) (1.00-4.00) 10^3/uL [place] # (Auto) (0.10-0.80) 10^3/uL Eos # (Auto) (0.10-0.30) 10^3/uL Baso # (Auto) (0.00-0.10) 10^3/uL Immature Gran # (Auto) (0.00-0.50) 10^3/uL VBG pH (7.31-7.41) VBG pCO2 (41-51) mmHG VBG pO2 mmHG VBG HCO3 (23-28) mmol/L VBG Total CO2 mmol/L VBG O2 Saturation % VBG Base Excess ((-2)-3) mmol/L O2 Delivery Device Sodium 138 (136-145) mmol/L Potassium 3.0 L (3.5-5.1) mmol/L Chloride 99 (98-107) mmol/L Carbon Dioxide 26.2 (21.0-32.0) mmol/L Anion Gap 15.8 H (5-15) mmol/L BUN 9 (7-18) mg/dL Creatinine 1.02 (0.51-1.17) mg/dL Est Cr Clr Drug Dosing 41.24 Estimated GFR (MDRD) 53 mL/min Glucose 304 H (70-140) mg/dL POC Glucose (70-140) mg/dL Hemoglobin A1c (4.3-5.7) % Calcium 8.7 (8.7-10.3) mg/dL Phosphorus 2.4 L (2.6-4.7) mg/dL Magnesium (1.8-2.4) mg/dL Total Bilirubin (0.2-1.0) mg/dL AST (15-37) U/L ALT (14-63) U/L Alkaline Phosphatase (46-116) U/L B-Natriuretic Peptide (0-100) pg/mL Total Protein (6.4-8.2) g/dL Albumin (3.40-5.00) g/dL Specimen Type Urine Color (YELLOW) Urine Appearance (CLEAR) Urine pH (5.0-9.0) Ur Specific [place] (1.005-1.030) Urine Protein (NEGATIVE) mg/dL Urine Glucose (UA) (NEGATIVE) mg/dL Urine Ketones (NEGATIVE) mg/dL Urine Occult Blood (NEGATIVE) Urine Nitrite (NEGATIVE) Urine Bilirubin (NEGATIVE) Urine Urobilinogen (0.2-1.0) E.U./dL Ur Leukocyte Esterase (NEGATIVE) Urine RBC (0-5) /HPF Urine WBC (0-5) /HPF Ur Epithelial Cells /LPF Urine Bacteria (NONE TO FEW) /HPF SARS CoV-2 RNA Rapid JUNE (NEGATIVE) Med Orders - Current: Current Medications Acetaminophen (Acetaminophen 325 Mg Tab) 650 mg PO Q6H PRN PRN Reason: Pain Last Admin: 02/07/21 03:09 Dose: 650 mg Documented by: Aspirin (Aspirin 81 Mg Tab.Ec) 81 mg PO DAILY [facility] Last Admin: 02/07/21 08:47 Dose: 81 mg Documented by: Clopidogrel Bisulfate (Clopidogrel 75 Mg Tab) 75 mg PO DAILY [facility] Last Admin: 02/07/21 08:47 Dose: 75 mg Documented by: Sodium Chloride (Sodium Chloride 0.45%) 1,000 mls @ 200 mls/hr IV ASDIRECTED [facility] Metoprolol Tartrate (Metoprolol Tartrate 25 Mg Tab) 25 mg PO BID [facility] Last Admin: 02/07/21 08:47 Dose: Not Given Documented by: Rosuvastatin Calcium (Rosuvastatin 10 Mg Tab) 20 mg PO BEDTIME [facility] Last Admin: 02/07/21 00:20 Dose: 20 mg Documented by: Discontinued Medications Sodium Chloride (Normal Saline) 1,000 mls @ 999 mls/hr IV .BOLUS ONE Stop: 02/06/21 21:55 Last Admin: 02/06/21 21:28 Dose: 999 mls/hr Documented by: Sodium Chloride (Normal Saline) 1,000 mls @ 200 mls/hr IV ASDIRECTED [facility] Last Admin: 02/06/21 23:08 Dose: 200 mls/hr Documented by: Potassium Chloride 20 meq/ (Premix) 100 mls @ 50 mls/hr IV ONETIME ONE Stop: 02/07/21 01:35 Last Admin: 02/07/21 00:25 Dose: 50 mls/hr Documented by: Sodium Chloride (Sodium Chloride 0.45%) 1,000 mls @ 200 mls/hr IV ASDIRECTED [facility] Last Admin: 02/07/21 08:19 Dose: 100 mls/hr Documented by: Potassium Chloride 20 meq/ (Premix) 100 mls @ 50 mls/hr IV ONETIME ONE Stop: 02/07/21 05:47 Last Admin: 02/07/21 03:58 Dose: 50 mls/hr Documented by: Potassium Chloride 20 meq/ (Premix) 100 mls @ 50 mls/hr IV ONETIME ONE Stop: 02/07/21 10:06 Last Admin: 02/07/21 08:45 Dose: 50 mls/hr Documented by: Insulin Human Regular (Insulin Regular, Human 100 Units/Ml 10 Ml Vial) 15 unit SUBCUT ONETIME ONE Stop: 02/06/21 21:32 Last Admin: 02/06/21 22:08 Dose: 15 units Documented by: Potassium Chloride (Potassium Chloride 20 Meq Packet) 20 meq PO ONETIME ONE Stop: 02/07/21 08:16 Last Admin: 02/07/21 08:46 Dose: 20 meq Documented by: Sodium Chloride (Sodium Chloride 0.9% 10 Ml Syringe) 10 ml FLUSH Q8HR PRN PRN Reason: keep vein open - Exam Quality Assessment: No: Supplemental Oxygen General: Alert, Oriented, Cooperative, No Acute Distress HEENT: Pupils Equal, Mucous Membr. Moist/[place] Neck: Supple Lungs: Clear to Auscultation, Normal Respiratory Effort Cardiovascular: Regular Rate, Regular Rhythm, No Murmurs GI/Abdominal Exam: Normal Bowel Sounds, Soft, Non-Tender, No Distention (Female) Exam: Deferred Back Exam: Normal Inspection, Full Range of Motion Extremities: Normal Inspection, Normal Range of Motion, Non-Tender, No Pedal Edema, Normal Capillary Refill Peripheral Pulses: 2+: Dorsalis Pedis (L), Dorsalis Pedis (R) Skin: Warm, Dry, Intact Neurological: No New Focal Deficit Psy/Mental Status: Alert, Normal Affect, Normal Mood #1 Interpretation EKG Date: 02/07/21 Time: 00:40 Rhythm: NSR Rate (Beats/Min): 67 [place]: LAD-Left [place] Deviation P-Wave: Present QRS: Wide ST-T: Normal QT: Normal Comparison: Change From Previous EKG EKG Interpretation Comments: New 1st degree AV block, left axis deviation as compared to previous EKG 09/24/18 - Patient Data Lab Results Last 24 hrs: Laboratory Results - last 24 hr 02/06/21 02/06/21 02/06/21 Range/Units 00:10 20:49 20:55 WBC (5.00-10.00) 10^3/uL RBC (3.80-5.50) 10^6/uL Hgb (12.0-16.0) g/dL Hct (37.0-47.0) % MCV (82.0-92.0) fL MCH (27.0-31.0) pg MCHC (32.0-36.0) g/dL RDW (11.5-14.5) % Plt Count (150-400) 10^3/uL MPV (7.4-10.4) fL Immature Gran % (Auto) (0.0-5.0) % Neut % (Auto) (50.0-70.0) % Lymph % (Auto) (20.0-40.0) % [place] % (Auto) (2.0-8.0) % Eos % (Auto) (1.0-3.0) % Baso % (Auto) (0.0-1.0) % Neut # (Auto) (2.50-7.00) 10^3/uL Lymph # (Auto) (1.00-4.00) 10^3/uL [place] # (Auto) (0.10-0.80) 10^3/uL Eos # (Auto) (0.10-0.30) 10^3/uL Baso # (Auto) (0.00-0.10) 10^3/uL Immature Gran # (Auto) (0.00-0.50) 10^3/uL VBG pH (7.31-7.41) VBG pCO2 (41-51) mmHG VBG pO2 mmHG VBG HCO3 (23-28) mmol/L VBG Total CO2 mmol/L VBG O2 Saturation % VBG Base Excess ((-2)-3) mmol/L O2 Delivery Device Sodium 136 (136-145) mmol/L Potassium 2.0 L* (3.5-5.1) mmol/L Chloride 97 L (98-107) mmol/L Carbon Dioxide 29.4 (21.0-32.0) mmol/L Anion Gap 11.6 (5-15) mmol/L BUN 13 (7-18) mg/dL Creatinine 1.04 (0.51-1.17) mg/dL Est Cr Clr Drug Dosing TNP Estimated GFR (MDRD) 52 mL/min Glucose 440 H (70-140) mg/dL POC Glucose > 600 H* (70-140) mg/dL Hemoglobin A1c > 14.0 H (4.3-5.7) % Calcium 9.0 (8.7-10.3) mg/dL Phosphorus (2.6-4.7) mg/dL Magnesium (1.8-2.4) mg/dL Total Bilirubin (0.2-1.0) mg/dL AST (15-37) U/L ALT (14-63) U/L Alkaline Phosphatase (46-116) U/L B-Natriuretic Peptide 52 (0-100) pg/mL Total Protein (6.4-8.2) g/dL Albumin (3.40-5.00) g/dL Specimen Type Urine Color (YELLOW) Urine Appearance (CLEAR) Urine pH (5.0-9.0) Ur Specific [place] (1.005-1.030) Urine Protein (NEGATIVE) mg/dL Urine Glucose (UA) (NEGATIVE) mg/dL Urine Ketones (NEGATIVE) mg/dL Urine Occult Blood (NEGATIVE) Urine Nitrite (NEGATIVE) Urine Bilirubin (NEGATIVE) Urine Urobilinogen (0.2-1.0) E.U./dL Ur Leukocyte Esterase (NEGATIVE) Urine RBC (0-5) /HPF Urine WBC (0-5) /HPF Ur Epithelial Cells /LPF Urine Bacteria (NONE TO FEW) /HPF SARS CoV-2 RNA Rapid JUNE Negative (NEGATIVE) 02/06/21 02/06/21 02/06/21 Range/Units 20:55 20:55 20:55 WBC 5.96 (5.00-10.00) 10^3/uL RBC 5.49 (3.80-5.50) 10^6/uL Hgb 16.0 (12.0-16.0) g/dL Hct 43.8 (37.0-47.0) % MCV 79.8 L D (82.0-92.0) fL MCH 29.1 (27.0-31.0) pg MCHC 36.5 H (32.0-36.0) g/dL RDW 11.7 (11.5-14.5) % Plt Count 198 (150-400) 10^3/uL MPV 11.3 H (7.4-10.4) fL Immature Gran % (Auto) 0.2 (0.0-5.0) % Neut % (Auto) 54.8 (50.0-70.0) % Lymph % (Auto) 35.4 (20.0-40.0) % [place] % (Auto) 8.4 H (2.0-8.0) % Eos % (Auto) 0.7 L (1.0-3.0) % Baso % (Auto) 0.5 (0.0-1.0) % Neut # (Auto) 3.27 (2.50-7.00) 10^3/uL Lymph # (Auto) 2.11 (1.00-4.00) 10^3/uL [place] # (Auto) 0.50 (0.10-0.80) 10^3/uL Eos # (Auto) 0.04 L (0.10-0.30) 10^3/uL Baso # (Auto) 0.03 (0.00-0.10) 10^3/uL Immature Gran # (Auto) 0.01 (0.00-0.50) 10^3/uL VBG pH 7.50 H (7.31-7.41) VBG pCO2 37 L (41-51) mmHG VBG pO2 17 mmHG VBG HCO3 29 H (23-28) mmol/L VBG Total CO2 29 mmol/L VBG O2 Saturation 29 % VBG Base Excess 6 H ((-2)-3) mmol/L O2 Delivery Device Room air Sodium 134 L (136-145) mmol/L Potassium 2.5 L (3.5-5.1) mmol/L Chloride 91 L (98-107) mmol/L Carbon Dioxide 30.3 (21.0-32.0) mmol/L Anion Gap 15.2 H (5-15) mmol/L BUN 16 (7-18) mg/dL Creatinine 1.18 H (0.51-1.17) mg/dL Est Cr Clr Drug Dosing TNP Estimated GFR (MDRD) 45 mL/min Glucose > 500 H (70-140) mg/dL POC Glucose (70-140) mg/dL Hemoglobin A1c (4.3-5.7) % Calcium 9.9 (8.7-10.3) mg/dL Phosphorus (2.6-4.7) mg/dL Magnesium (1.8-2.4) mg/dL Total Bilirubin 0.8 (0.2-1.0) mg/dL AST 20 (15-37) U/L ALT 28 (14-63) U/L Alkaline Phosphatase 70 (46-116) U/L B-Natriuretic Peptide (0-100) pg/mL Total Protein 7.1 (6.4-8.2) g/dL Albumin 3.64 (3.40-5.00) g/dL Specimen Type Urine Color (YELLOW) Urine Appearance (CLEAR) Urine pH (5.0-9.0) Ur Specific [place] (1.005-1.030) Urine Protein (NEGATIVE) mg/dL Urine Glucose (UA) (NEGATIVE) mg/dL Urine Ketones (NEGATIVE) mg/dL Urine Occult Blood (NEGATIVE) Urine Nitrite (NEGATIVE) Urine Bilirubin (NEGATIVE) Urine Urobilinogen (0.2-1.0) E.U./dL Ur Leukocyte Esterase (NEGATIVE) Urine RBC (0-5) /HPF Urine WBC (0-5) /HPF Ur Epithelial Cells /LPF Urine Bacteria (NONE TO FEW) /HPF SARS CoV-2 RNA Rapid JUNE (NEGATIVE) 02/06/21 02/06/21 02/07/21 Range/Units 21:55 23:00 00:36 WBC (5.00-10.00) 10^3/uL RBC (3.80-5.50) 10^6/uL Hgb (12.0-16.0) g/dL Hct (37.0-47.0) % MCV (82.0-92.0) fL MCH (27.0-31.0) pg MCHC (32.0-36.0) g/dL RDW (11.5-14.5) % Plt Count (150-400) 10^3/uL MPV (7.4-10.4) fL Immature Gran % (Auto) (0.0-5.0) % Neut % (Auto) (50.0-70.0) % Lymph % (Auto) (20.0-40.0) % [place] % (Auto) (2.0-8.0) % Eos % (Auto) (1.0-3.0) % Baso % (Auto) (0.0-1.0) % Neut # (Auto) (2.50-7.00) 10^3/uL Lymph # (Auto) (1.00-4.00) 10^3/uL [place] # (Auto) (0.10-0.80) 10^3/uL Eos # (Auto) (0.10-0.30) 10^3/uL Baso # (Auto) (0.00-0.10) 10^3/uL Immature Gran # (Auto) (0.00-0.50) 10^3/uL VBG pH (7.31-7.41) VBG pCO2 (41-51) mmHG VBG pO2 mmHG VBG HCO3 (23-28) mmol/L VBG Total CO2 mmol/L VBG O2 Saturation % VBG Base Excess ((-2)-3) mmol/L O2 Delivery Device Sodium (136-145) mmol/L Potassium (3.5-5.1) mmol/L Chloride (98-107) mmol/L Carbon Dioxide (21.0-32.0) mmol/L Anion Gap (5-15) mmol/L BUN (7-18) mg/dL Creatinine (0.51-1.17) mg/dL Est Cr Clr Drug Dosing Estimated GFR (MDRD) mL/min Glucose (70-140) mg/dL POC Glucose 541 H 413 H (70-140) mg/dL Hemoglobin A1c (4.3-5.7) % Calcium (8.7-10.3) mg/dL Phosphorus (2.6-4.7) mg/dL Magnesium (1.8-2.4) mg/dL Total Bilirubin (0.2-1.0) mg/dL AST (15-37) U/L ALT (14-63) U/L Alkaline Phosphatase (46-116) U/L B-Natriuretic Peptide (0-100) pg/mL Total Protein (6.4-8.2) g/dL Albumin (3.40-5.00) g/dL Specimen Type Urinvoid Urine Color Yellow (YELLOW) Urine Appearance Clear (CLEAR) Urine pH 6.5 (5.0-9.0) Ur Specific [place] 1.010 (1.005-1.030) Urine Protein 100 H (NEGATIVE) mg/dL Urine Glucose (UA) 500 H (NEGATIVE) mg/dL Urine Ketones Negative (NEGATIVE) mg/dL Urine Occult Blood Small H (NEGATIVE) Urine Nitrite Negative (NEGATIVE) Urine Bilirubin Negative (NEGATIVE) Urine Urobilinogen 0.2 (0.2-1.0) E.U./dL Ur Leukocyte Esterase Negative (NEGATIVE) Urine RBC 0-5 (0-5) /HPF Urine WBC 0-5 (0-5) /HPF Ur Epithelial Cells Many H /LPF Urine Bacteria Rare (NONE TO FEW) /HPF SARS CoV-2 RNA Rapid JUNE (NEGATIVE) 02/07/21 02/07/21 02/07/21 Range/Units 03:10 07:09 07:09 WBC (5.00-10.00) 10^3/uL RBC (3.80-5.50) 10^6/uL Hgb (12.0-16.0) g/dL Hct (37.0-47.0) % MCV (82.0-92.0) fL MCH (27.0-31.0) pg MCHC (32.0-36.0) g/dL RDW (11.5-14.5) % Plt Count (150-400) 10^3/uL MPV (7.4-10.4) fL Immature Gran % (Auto) (0.0-5.0) % Neut % (Auto) (50.0-70.0) % Lymph % (Auto) (20.0-40.0) % [place] % (Auto) (2.0-8.0) % Eos % (Auto) (1.0-3.0) % Baso % (Auto) (0.0-1.0) % Neut # (Auto) (2.50-7.00) 10^3/uL Lymph # (Auto) (1.00-4.00) 10^3/uL [place] # (Auto) (0.10-0.80) 10^3/uL Eos # (Auto) (0.10-0.30) 10^3/uL Baso # (Auto) (0.00-0.10) 10^3/uL Immature Gran # (Auto) (0.00-0.50) 10^3/uL VBG pH (7.31-7.41) VBG pCO2 (41-51) mmHG VBG pO2 mmHG VBG HCO3 (23-28) mmol/L VBG Total CO2 mmol/L VBG O2 Saturation % VBG Base Excess ((-2)-3) mmol/L O2 Delivery Device Sodium 137 136 (136-145) mmol/L Potassium 2.0 L* 2.3 L* (3.5-5.1) mmol/L Chloride 97 L 100 (98-107) mmol/L Carbon Dioxide 29.2 27.1 (21.0-32.0) mmol/L Anion Gap 12.8 11.2 (5-15) mmol/L BUN 13 11 (7-18) mg/dL Creatinine 0.96 0.91 (0.51-1.17) mg/dL Est Cr Clr Drug Dosing 43.82 46.23 Estimated GFR (MDRD) 57 > 60 mL/min Glucose 320 H 307 H (70-140) mg/dL POC Glucose (70-140) mg/dL Hemoglobin A1c (4.3-5.7) % Calcium 9.1 8.5 L (8.7-10.3) mg/dL Phosphorus (2.6-4.7) mg/dL Magnesium 1.9 (1.8-2.4) mg/dL Total Bilirubin (0.2-1.0) mg/dL AST (15-37) U/L ALT (14-63) U/L Alkaline Phosphatase 57 (46-116) U/L B-Natriuretic Peptide (0-100) pg/mL Total Protein (6.4-8.2) g/dL Albumin (3.40-5.00) g/dL Specimen Type Urine Color (YELLOW) Urine Appearance (CLEAR) Urine pH (5.0-9.0) Ur Specific [place] (1.005-1.030) Urine Protein (NEGATIVE) mg/dL Urine Glucose (UA) (NEGATIVE) mg/dL Urine Ketones (NEGATIVE) mg/dL Urine Occult Blood (NEGATIVE) Urine Nitrite (NEGATIVE) Urine Bilirubin (NEGATIVE) Urine Urobilinogen (0.2-1.0) E.U./dL Ur Leukocyte Esterase (NEGATIVE) Urine RBC (0-5) /HPF Urine WBC (0-5) /HPF Ur Epithelial Cells /LPF Urine Bacteria (NONE TO FEW) /HPF SARS CoV-2 RNA Rapid JUNE (NEGATIVE) 02/07/21 02/07/21 Range/Units 07:09 11:55 WBC (5.00-10.00) 10^3/uL RBC (3.80-5.50) 10^6/uL Hgb (12.0-16.0) g/dL Hct (37.0-47.0) % MCV (82.0-92.0) fL MCH (27.0-31.0) pg MCHC (32.0-36.0) g/dL RDW (11.5-14.5) % Plt Count (150-400) 10^3/uL MPV (7.4-10.4) fL Immature Gran % (Auto) (0.0-5.0) % Neut % (Auto) (50.0-70.0) % Lymph % (Auto) (20.0-40.0) % [place] % (Auto) (2.0-8.0) % Eos % (Auto) (1.0-3.0) % Baso % (Auto) (0.0-1.0) % Neut # (Auto) (2.50-7.00) 10^3/uL Lymph # (Auto) (1.00-4.00) 10^3/uL [place] # (Auto) (0.10-0.80) 10^3/uL Eos # (Auto) (0.10-0.30) 10^3/uL Baso # (Auto) (0.00-0.10) 10^3/uL Immature Gran # (Auto) (0.00-0.50) 10^3/uL VBG pH (7.31-7.41) VBG pCO2 (41-51) mmHG VBG pO2 mmHG VBG HCO3 (23-28) mmol/L VBG Total CO2 mmol/L VBG O2 Saturation % VBG Base Excess ((-2)-3) mmol/L O2 Delivery Device Sodium 138 (136-145) mmol/L Potassium 3.0 L (3.5-5.1) mmol/L Chloride 99 (98-107) mmol/L Carbon Dioxide 26.2 (21.0-32.0) mmol/L Anion Gap 15.8 H (5-15) mmol/L BUN 9 (7-18) mg/dL Creatinine 1.02 (0.51-1.17) mg/dL Est Cr Clr Drug Dosing 41.24 Estimated GFR (MDRD) 53 mL/min Glucose 304 H (70-140) mg/dL POC Glucose (70-140) mg/dL Hemoglobin A1c (4.3-5.7) % Calcium 8.7 (8.7-10.3) mg/dL Phosphorus 2.4 L (2.6-4.7) mg/dL Magnesium (1.8-2.4) mg/dL Total Bilirubin (0.2-1.0) mg/dL AST (15-37) U/L ALT (14-63) U/L Alkaline Phosphatase (46-116) U/L B-Natriuretic Peptide (0-100) pg/mL Total Protein (6.4-8.2) g/dL Albumin (3.40-5.00) g/dL Specimen Type Urine Color (YELLOW) Urine Appearance (CLEAR) Urine pH (5.0-9.0) Ur Specific [place] (1.005-1.030) Urine Protein (NEGATIVE) mg/dL Urine Glucose (UA) (NEGATIVE) mg/dL Urine Ketones (NEGATIVE) mg/dL Urine Occult Blood (NEGATIVE) Urine Nitrite (NEGATIVE) Urine Bilirubin (NEGATIVE) Urine Urobilinogen (0.2-1.0) E.U./dL Ur Leukocyte Esterase (NEGATIVE) Urine RBC (0-5) /HPF Urine WBC (0-5) /HPF Ur Epithelial Cells /LPF Urine Bacteria (NONE TO FEW) /HPF SARS CoV-2 RNA Rapid JUNE (NEGATIVE) Result Diagrams: 02/06/21 20:55 02/07/21 11:55 Sepsis Event Note - Evaluation Sepsis Screening Result: No Definite Risk - Focused Exam Vital Signs: Vital Signs Temp Pulse Pulse Resp BP BP Pulse Ox 02/07/21 11:00 96.6 F L 67 18 121/67 100 02/07/21 08:15 59 L 98/55 L 02/07/21 07:00 97.1 F 57 L 18 91/46 L 98 02/07/21 03:00 97.6 F 63 20 132/69 99 02/07/21 00:20 63 122/67 - Problem List Review Problem List Initiated/Reviewed/Updated: Yes - My Orders Last 24 Hours: My Active Orders 02/06/21 22:47 Height and Weight [RC] 07 Oxygen Therapy [RC] PRN Up With Assistance [RC] ASDIRECTED VTE/DVT Education [RC] PER UNIT ROUTINE Vital Signs [RC] Q4H 02/06/21 22:48 Intake and Output [RC] 06,14,22 02/06/21 23:45 Metoprolol Tartrate [Lopressor] 25 mg PO BID 02/06/21 23:52 Rosuvastatin [Crestor] 20 mg PO BEDTIME 02/06/21 23:53 Telemetry Monitoring [Cardiac Monitoring] [RC] 03,07,11,15,19,23 02/07/21 00:32 EKG 12 Lead [EK] Routine 02/07/21 03:02 Acetaminophen [TylenoL] 650 mg PO Q6H PRN 02/07/21 Breakfast Consistent Carbohydrate Diet [DIET] Heart Healthy Diet [DIET] 02/07/21 09:00 Aspirin [Halfprin] 81 mg PO DAILY Clopidogrel [Plavix] 75 mg PO DAILY Sodium Chloride 0.45% 1,000 ml IV ASDIRECTED - Plan Plan:: HPI summary: Anjana is a 70y F patient who presented to the ER with c/o elevated blood sugars with polydipsia, polyuria and lightheadedness which has been occurring intermittently for the past week. She has been non-compliant with her insulin for her diabetes due to cost. She states she has not checked her blood sugar in over a year and she drinks a lot of coca-cola. She denies chest pain, shortness of breath, diaphoresis, N/V. No fever or chills. She denies dysuria, has been having urinary frequency for the past two weeks. She is alert and oriented. PMH of atherosclerotic heart disease with multivessel involvement. PCI to OM and LCX in 11/03 followed by PCI to RCA and LAD in 12/04; HTN, HLD, DMII. Last echo in 2018 - Normal EF of 65-70%, no indication of systolic or diastolic dysfunction. Patient to be admitted to [place] inpatient service for correction of electrolytes, fluid resuscitation and insulin administration due to severe hyperglycemia. ED course: Vitals stable. CBC unremarkable. Na 144, K 2.5, Creatinine 1.18, BS > 600. Patient given a 1L NS bolus and 15 units regular insulin sub-q. VBG without indication of acidosis. Urine negative for ketones. CXR without acute process. Hospital course: 02/06/21: Patient resting in hospital bed upon admission. Endorses still fe eling lightheaded. No other complaints. Requesting a coca-cola and a cheeseburger. Lung sounds clear, HRR. No edema. Blood glucose 541 upon recheck after sub-q insulin given in ER. Will obtain Hgb A1C and BNP. KCl IV 20mEq to be given with BMP following - will continue to replace by IV until K is 3.3. Patient placed on telemetry given hypokalemia. IV fluids to be continued 1/2 NS due to corrected Na of ~ 144 prior to NS bolus in ER. Will infuse at 200ml/hr for 2 hours then decrease to 100ml/hr. 02/07/21: Patient feeling better today. Repeated BMP overnight with improvement in K to 2.3 this morning after 40mEq KCl IV, 20mEq IV and 20mEq PO given this morning with repeat K of 3.0 at noon. Additional 20mEq IV and 20mEq PO ordered, repeat BMP at 1600. Glucose 307 this morning and 304 at noon. Will hold off on sliding scale insulin until K > 3.3. Blood pressure soft this am, increased IVF of 1/2 NS back to 200ml/hr with improved pressures. Mg 1.9 this am - mag oxide 500mg started PO daily. Phos 2.4. BNP 52. Hgb A1C > 14%. Hospitalization problems and plan: # Hyperosmolar hyperglycemic nonketotic syndrome - Initial blood glucose > 600. Insulin of 15units regular sub-q given in ER. Repeat glucose of 541 after admission. - Will start regular insulin by sliding scale and blood glucose monitoring (frequent BMP's for now) once K improves to 3.3 or higher. - Continue 1/2 NS @ 200ml/hr # Hypokalemia - Initial result of 2.5 in ER - suspect further decrease in K due to insulin administration in ER prior to admission. - continue telemetry - Recheck BMP at 1600 this afternoon - Will continue to replace K as indicated unitl normalized; 120mEq given thus far PO/IV Chronic, stable conditions: # HTN - continue metoprolol 25mg PO BID # CAD with hx of PCI - continue aspirin 81mg PO daily, plavix 75mg PO daily # Dyspnea on exertion # Familial hypercholesterolemia - continue rosuvastatin 20mg PO daily # Diabetes mellitus, type II - no current medications upon admission - used to be on metformin and tresiba - restart anti-diabetic medications upon discharge # Medication non-compliance Hospitalization details: # FEN: 1/2 NS @ 200ml/hr, KCl IV/PO for hypokalemia, heart healthy/diabetic diet # PPX: On plavix, ASA # Code status: DNR/DNI # Emergency contact: Valentine Peterson - updated on rounds today # Disposition: Will maintain inpatient status for additional lab monitoring and normalization of electrolytes, cardiac monitoring given hypokalemia as well as initiation of anti-diabetic medications. Discharge planning to be based on clinical course.
[2021-02-07] MEDS: Magnesium Oxide 500 MG Tab PO SCH (12:46)
[2021-02-07 16:29] LABS: ANION GAP 11.9 mmol/L (5-15)
[2021-02-07 20:18] LABS: ANION GAP 11.4 mmol/L (5-15)
[2021-02-07] MEDS ORDERED: 50% Dextrose in Water 50 ML Syringe IVPUSH PRN (20:26)
[2021-02-07] MEDS ORDERED: Glucagon,Human Recombinant 1 MG Vial IM PRN (20:26)
[2021-02-07] MEDS: Sodium Chloride 0.45% with KCl 1,000 ML IV SCH (20:57)
[2021-02-07] MEDS: Insulin Aspart 100 Units/ML 3 ML Pen SUBCUT SCH (21:50)
[2021-02-08 00:29] LABS: ANION GAP 11.9 mmol/L (5-15)
[2021-02-08] MEDS: Sodium Chloride 0.45% with KCl 1,000 ML IV SCH ×2 (02:18→07:24)
[2021-02-08 07:52] LABS: ANION GAP 12.2 mmol/L (5-15); CHLORIDE,CL 106 mmol/L (98-107); SODIUM,NA 138 mmol/L (136-145)
[2021-02-08] MEDS: Insulin Aspart 100 Units/ML 3 ML Pen SUBCUT SCH ×4 (08:01→21:28)
[2021-02-08] MEDS: Metoprolol Tartrate 25 MG Tab PO SCH ×2 (08:03→20:49)
[2021-02-08] MEDS: Aspirin 81 MG Tab.EC PO SCH (08:03)
[2021-02-08] MEDS: Clopidogrel 75 MG Tab PO SCH (08:03)
[2021-02-08] MEDS: Magnesium Oxide 500 MG Tab PO SCH (08:03)
[2021-02-08] MEDS ORDERED: Sodium Chloride 0.45% with KCl 1,000 ML IV SCH ×2 (09:00→14:45)
[2021-02-08] MEDS: Phosphorus #1 250 MG Tab PO SCH ×2 (09:05→20:49)
[2021-02-08] MEDS: Insulin Glargine,Hum.Rec.Anlog 100 UNIT/ML 3 ML Pen SUBCUT SCH (09:36)
[2021-02-08] MEDS: metFORMIN 500 MG Tab.ER PO SCH ×2 (09:36→17:25)
--- NOTE | 2021-02-08 10:17 | PCM.PN ---
- General Info Date of Service: 02/08/21 Subjective Update: Patient reports feeling better. Denies new symptoms. Irritable this morning, offers concerns about her dog. Functional Status: Reports: Pain Controlled, Tolerating Diet, Urinating. Denies: New Symptoms - Review of Systems General: Reports: No Symptoms HEENT: Reports: Headaches (occasional) Pulmonary: Reports: No Symptoms. Denies: Shortness of Breath, Cough Cardiovascular: Reports: No Symptoms. Denies: Chest Pain, Palpitations Gastrointestinal: Reports: Constipation (no BM since admission, states "it is normal for me."). Denies: Abdominal Pain, Nausea Genitourinary: Reports: No Symptoms Musculoskeletal: Reports: No Symptoms Skin: Reports: No Symptoms Neurological: Reports: No Symptoms Psychiatric: Reports: No Symptoms - Patient Data Vitals - Most Recent: Last Vital Signs Temp 97.8 F 02/08/21 07:00 Pulse 68 02/08/21 08:03 Resp 18 02/08/21 07:00 BP 110/80 02/08/21 08:03 Pulse Ox 97 02/08/21 07:00 Weight - Most Recent: 143 lb 14.4 oz I&O - Last 24 Hours: Intake & Output 02/07/21 02/08/21 02/08/21 22:59 06:59 14:59 Intake Total 1845 2125 Output Total 900 Balance 945 2125 Lab Results Last 24 Hours: Laboratory Results - last 24 hr 02/07/21 02/07/21 02/07/21 Range/Units 11:55 16:05 19:55 Sodium 138 138 138 (136-145) mmol/L Potassium 3.0 L 3.0 L 3.8 (3.5-5.1) mmol/L Chloride 99 100 103 (98-107) mmol/L Carbon Dioxide 26.2 29.1 27.4 (21.0-32.0) mmol/L Anion Gap 15.8 H 11.9 11.4 (5-15) mmol/L BUN 9 10 9 (7-18) mg/dL Creatinine 1.02 1.03 0.95 (0.51-1.17) mg/dL Est Cr Clr Drug Dosing 41.24 40.84 44.28 mL/min Estimated GFR (MDRD) 53 53 58 mL/min Glucose 304 H 351 H 353 H (70-140) mg/dL POC Glucose (70-140) mg/dL Calcium 8.7 8.6 L 8.4 L (8.7-10.3) mg/dL Phosphorus (2.6-4.7) mg/dL Magnesium (1.8-2.4) mg/dL 02/07/21 02/08/21 02/08/21 Range/Units 21:48 00:05 07:11 Sodium 138 138 (136-145) mmol/L Potassium 3.8 4.4 (3.5-5.1) mmol/L Chloride 103 106 (98-107) mmol/L Carbon Dioxide 26.9 24.2 (21.0-32.0) mmol/L Anion Gap 11.9 12.2 (5-15) mmol/L BUN 9 7 (7-18) mg/dL Creatinine 0.96 0.92 (0.51-1.17) mg/dL Est Cr Clr Drug Dosing 43.82 45.72 mL/min Estimated GFR (MDRD) 57 > 60 mL/min Glucose 354 H 268 H (70-140) mg/dL POC Glucose 342 H (70-140) mg/dL Calcium 8.2 L 8.2 L (8.7-10.3) mg/dL Phosphorus 1.8 L (2.6-4.7) mg/dL Magnesium 2.1 (1.8-2.4) mg/dL 02/08/21 Range/Units 07:19 Sodium (136-145) mmol/L Potassium (3.5-5.1) mmol/L Chloride (98-107) mmol/L Carbon Dioxide (21.0-32.0) mmol/L Anion Gap (5-15) mmol/L BUN (7-18) mg/dL Creatinine (0.51-1.17) mg/dL Est Cr Clr Drug Dosing mL/min Estimated GFR (MDRD) mL/min Glucose (70-140) mg/dL POC Glucose 260 H (70-140) mg/dL Calcium (8.7-10.3) mg/dL Phosphorus (2.6-4.7) mg/dL Magnesium (1.8-2.4) mg/dL Med Orders - Current: Current Medications Acetaminophen (Acetaminophen 325 Mg Tab) 650 mg PO Q6H PRN PRN Reason: Pain Last Admin: 02/07/21 03:09 Dose: 650 mg Documented by: Aspirin (Aspirin 81 Mg Tab.Ec) 81 mg PO DAILY COUNT INCLUDES THE [facility] Last Admin: 02/08/21 08:03 Dose: 81 mg Documented by: Clopidogrel Bisulfate (Clopidogrel 75 Mg Tab) 75 mg PO DAILY COUNT INCLUDES THE [facility] Last Admin: 02/08/21 08:03 Dose: 75 mg Documented by: Dextrose/Water (50% Dextrose In Water 50 Ml Syringe) 50 ml IVPUSH ASDIRECTED PRN PRN Reason: Hypoglycemia Glucagon (Glucagon,Human Recombinant 1 Mg Vial) 1 mg IM ASDIRECTED PRN PRN Reason: Hypoglycemia Potassium Chloride/Sodium Chloride (1/2 Ns With 20 Meq Kcl) 1,000 mls @ 125 mls/hr IV ASDIRECTED COUNT INCLUDES THE [facility] Insulin Aspart (Insulin Aspart 100 Units/Ml 3 Ml Pen) 0 unit SUBCUT WITHMEALSANDBED COUNT INCLUDES THE [facility]; Protocol Last Admin: 02/08/21 08:01 Dose: 3 units Documented by: Insulin Glargine (Insulin Glargine,Hum.Rec.Anlog 100 Unit/Ml 3 Ml Pen) 10 unit SUBCUT DAILY COUNT INCLUDES THE [facility] Last Admin: 02/08/21 09:36 Dose: 10 units Documented by: Magnesium Oxide (Magnesium Oxide 500 Mg Tab) 500 mg PO DAILY COUNT INCLUDES THE [facility] Last Admin: 02/08/21 08:03 Dose: 500 mg Documented by: Metformin HCl (Metformin 500 Mg Tab.Er) 500 mg PO BIDMEALS COUNT INCLUDES THE [facility] Last Admin: 02/08/21 09:36 Dose: 500 mg Documented by: Metoprolol Tartrate (Metoprolol Tartrate 25 Mg Tab) 25 mg PO BID COUNT INCLUDES THE [facility] Last Admin: 02/08/21 08:03 Dose: 25 mg Documented by: Rosuvastatin Calcium (Rosuvastatin 10 Mg Tab) 20 mg PO BEDTIME COUNT INCLUDES THE [facility] Last Admin: 02/07/21 20:09 Dose: 20 mg Documented by: Sodium Phosphate (Phosphorus #1 250 Mg Tab) 250 mg PO BID COUNT INCLUDES THE [facility] Last Admin: 02/08/21 09:05 Dose: 250 mg Documented by: Discontinued Medications Sodium Chloride (Normal Saline) 1,000 mls @ 999 mls/hr IV .BOLUS ONE Stop: 02/06/21 21:55 Last Admin: 02/06/21 21:28 Dose: 999 mls/hr Documented by: Sodium Chloride (Normal Saline) 1,000 mls @ 200 mls/hr IV ASDIRECTED COUNT INCLUDES THE [facility] Last Admin: 02/06/21 23:08 Dose: 200 mls/hr Documented by: Potassium Chloride 20 meq/ (Premix) 100 mls @ 50 mls/hr IV ONETIME ONE Stop: 02/07/21 01:35 Last Admin: 02/07/21 00:25 Dose: 50 mls/hr Documented by: Sodium Chloride (Sodium Chloride 0.45%) 1,000 mls [facility] Admin: 02/07/21 08:19 Dose: 100 mls/hr Documented by: Potassium Chloride 20 meq/ (Premix) 100 mls @ 50 mls/hr IV ONETIME ONE Stop: 02/07/21 05:47 Last Admin: 02/07/21 03:58 Dose: 50 mls/hr Documented by: Potassium Chloride 20 meq/ (Premix) 100 mls @ 50 mls/hr IV ONETIME ONE Stop: 02/07/21 10:06 Last Admin: 02/07/21 08:45 Dose: 50 mls/hr Documented by: Sodium Chloride (Sodium Chloride 0.45%) 1,000 mls @ [facility] Last Admin: 02/07/21 19:30 Dose: 200 mls/hr Documented by: Potassium Chloride 20 meq/ (Premix) 100 mls @ 50 mls/hr IV ONETIME ONE Stop: 02/07/21 14:19 Last Admin: 02/07/21 12:46 Dose: 50 mls/hr Documented by: Potassium Chloride 20 meq/ (Premix) 100 mls @ 50 mls/hr IV ONETIME ONE Stop: 02/07/21 18:41 Last Admin: 02/07/21 16:58 Dose: 50 mls/hr Documented by: Potassium Chloride/Sodium Chloride (1/2 Ns With 20 Meq Kcl) 1,000 mls @ 200 [facility] Last Infusion: 02/08/21 09:04 Dose: 125 mls/hr Documented by: Insulin Human Regular (Insulin Regular, Human 100 Units/Ml 10 Ml Vial) 15 unit SUBCUT ONETIME ONE Stop: 02/06/21 21:32 Last Admin: 02/06/21 22:08 Dose: 15 units Documented by: Potassium Chloride (Potassium Chloride 20 Meq Packet) 20 meq PO ONETIME ONE Stop: 02/07/21 08:16 Last Admin: 02/07/21 08:46 Dose: 20 meq Documented by: Potassium Chloride (Potassium Chloride 20 Meq Packet) 20 meq PO ONETIME ONE Stop: 02/07/21 12:23 Last Admin: 02/07/21 12:45 Dose: 20 meq Documented by: Potassium Chloride (Potassium Chloride 20 Meq Packet) 20 meq PO ONETIME ONE Stop: 02/07/21 16:43 Last Admin: 02/07/21 16:58 Dose: 20 meq Documented by: Potassium Chloride (Potassium Chloride 20 Meq Packet) 20 meq PO ONETIME ONE Stop: 02/07/21 17:46 Last Admin: 02/07/21 18:01 Dose: 20 meq Documented by: Sodium Chloride (Sodium Chloride 0.9% 10 Ml Syringe) 10 ml FLUSH Q8HR PRN PRN Reason: keep vein open - Exam Quality Assessment: No: Supplemental Oxygen General: Alert, Oriented, Other (irritable) HEENT: Pupils Equal, Mucous Membr. Moist/[place] Neck: Supple Lungs: Clear to Auscultation, Normal Respiratory Effort Cardiovascular: Regular Rate, Regular Rhythm, No Murmurs GI/Abdominal Exam: Normal Bowel Sounds, Soft, Non-Tender, No Distention (Female) Exam: Deferred Back Exam: Normal Inspection, Full Range of Motion Extremities: Normal Inspection, Normal Range of Motion, Non-Tender, No Pedal Edema, Normal Capillary Refill Peripheral Pulses: 2+: Dorsalis Pedis (L), Dorsalis Pedis (R) Skin: Warm, Dry, Intact Neurological: No New Focal Deficit Psy/Mental Status: Alert, Other (irritable) - Patient Data Lab Results Last 24 hrs: Laboratory Results - last 24 hr 02/07/21 02/07/21 02/07/21 Range/Units 11:55 16:05 19:55 Sodium 138 138 138 (136-145) mmol/L Potassium 3.0 L 3.0 L 3.8 (3.5-5.1) mmol/L Chloride 99 100 103 (98-107) mmol/L Carbon Dioxide 26.2 29.1 27.4 (21.0-32.0) mmol/L Anion Gap 15.8 H 11.9 11.4 (5-15) mmol/L BUN 9 10 9 (7-18) mg/dL Creatinine 1.02 1.03 0.95 (0.51-1.17) mg/dL Est Cr Clr Drug Dosing 41.24 40.84 44.28 mL/min Estimated GFR (MDRD) 53 53 58 mL/min Glucose 304 H 351 H 353 H (70-140) mg/dL POC Glucose (70-140) mg/dL Calcium 8.7 8.6 L 8.4 L (8.7-10.3) mg/dL Phosphorus (2.6-4.7) mg/dL Magnesium (1.8-2.4) mg/dL 02/07/21 02/08/21 02/08/21 Range/Units 21:48 00:05 07:11 Sodium 138 138 (136-145) mmol/L Potassium 3.8 4.4 (3.5-5.1) mmol/L Chloride 103 106 (98-107) mmol/L Carbon Dioxide 26.9 24.2 (21.0-32.0) mmol/L Anion Gap 11.9 12.2 (5-15) mmol/L BUN 9 7 (7-18) mg/dL Creatinine 0.96 0.92 (0.51-1.17) mg/dL Est Cr Clr Drug Dosing 43.82 45.72 mL/min Estimated GFR (MDRD) 57 > 60 mL/min Glucose 354 H 268 H (70-140) mg/dL POC Glucose 342 H (70-140) mg/dL Calcium 8.2 L 8.2 L (8.7-10.3) mg/dL Phosphorus 1.8 L (2.6-4.7) mg/dL Magnesium 2.1 (1.8-2.4) mg/dL 02/08/21 Range/Units 07:19 Sodium (136-145) mmol/L Potassium (3.5-5.1) mmol/L Chloride (98-107) mmol/L Carbon Dioxide (21.0-32.0) mmol/L Anion Gap (5-15) mmol/L BUN (7-18) mg/dL Creatinine (0.51-1.17) mg/dL Est Cr Clr Drug Dosing mL/min Estimated GFR (MDRD) mL/min Glucose (70-140) mg/dL POC Glucose 260 H (70-140) mg/dL Calcium (8.7-10.3) mg/dL Phosphorus (2.6-4.7) mg/dL Magnesium (1.8-2.4) mg/dL Result Diagrams: 02/06/21 20:55 02/08/21 13:59 Sepsis Event Note - Evaluation Sepsis Screening Result: No Definite Risk - Focused Exam Vital Signs: Vital Signs Temp Pulse Pulse Resp BP BP Pulse Ox 02/08/21 08:03 68 110/80 02/08/21 07:00 97.8 F 67 18 115/66 97 02/08/21 03:00 97.3 F 66 18 120/70 96 02/07/21 23:00 97.4 F 66 20 140/74 97 - Problem List Review Problem List Initiated/Reviewed/Updated: Yes - My Orders Last 24 Hours: My Active Orders 02/07/21 09:00 Aspirin [Halfprin] 81 mg PO DAILY Clopidogrel [Plavix] 75 mg PO DAILY 02/07/21 12:30 Magnesium Oxide 500 mg PO DAILY 02/07/21 20:26 Dextrose 50% in Water 50 ml IVPUSH ASDIRECTED PRN Glucagon,Human Recombinant [GlucaGen] 1 mg IM ASDIRECTED PRN 02/07/21 21:00 Accu Check [Blood Glucose Check, Bedside] [RC] QIDACANDBED 02/07/21 22:00 Insulin Aspart [NovoLOG] See Protocol SUBCUT WITHMEALSANDBED 02/08/21 09:00 Insulin Glargine,Hum.Rec.Anlog [Semglee Pen] 10 unit SUBCUT DAILY Phosphorus #1 [Neutra-Phos] 250 mg PO BID Sodium Chloride 0.45% with KCl [1/2 NS with 20 mEq KCl] 1,000 ml IV ASDIRECTED 02/08/21 14:00 BMP [BASIC METABOLIC PANEL,BMP] [CHEM] Routine 02/08/21 18:00 metFORMIN [Glucophage XR] 500 mg PO BIDMEALS - Plan Plan:: HPI summary: Anjana is a 70y F patient who presented to the ER with c/o elevated blood sugars with polydipsia, polyuria and lightheadedness which has been occurring intermittently for the past week. She has been non-compliant with her insulin for her diabetes due to cost. She states she has not checked her blood sugar in over a year and she drinks a lot of coca-cola. She denies chest pain, shortness of breath, diaphoresis, N/V. No fever or chills. She denies dysuria, has been having urinary frequency for the past two weeks. She is alert and or iented. PMH of atherosclerotic heart disease with multivessel involvement. PCI to OM and LCX in 11/03 followed by PCI to RCA and LAD in 12/04; HTN, HLD, DMII. Last echo in 2018 - Normal EF of 65-70%, no indication of systolic or diastolic dysfunction. Patient to be admitted to [place] inpatient service for correction of electrolytes, fluid resuscitation and insulin administration due to severe h yperglycemia. ED course: Vitals stable. CBC unremarkable. Na 144, K 2.5, Creatinine 1.18, BS > 600. Patient given a 1L NS bolus and 15 units regular insulin sub-q. VBG without indication of acidosis. Urine negative for ketones. CXR without acute process. Hospital course: 02/06/21: Patient resting in hospital bed upon admission. Endorses still feeling lightheaded. No other complaints. Requesting a coca-cola and a cheeseburger. Lung sounds clear, HRR. No edema. Blood glucose 541 upon recheck after sub-q insulin given in ER. Will obtain Hgb A1C and BNP. KCl IV 20mEq to be given with BMP following - will continue to replace by IV until K is 3.3. Patient placed on telemetry given hypokalemia. IV fluids to be continued 1/2 NS due to corrected Na of ~ 144 prior to NS bolus in ER. Will infuse at 200ml/hr for 2 hours then decrease to 100ml/hr. 02/07/21: Patient feeling better today. Repeated BMP overnight with improvement in K to 2.3 this morning after 40mEq KCl IV, 20mEq IV and 20mEq PO given this morning with repeat K of 3.0 at noon. Additional 20mEq IV and 20mEq PO ordered, repeat BMP at 1600. Glucose 307 this morning and 304 at noon. Will hold off on sliding scale insulin until K > 3.3. Blood pressure soft this am, increased IVF of 1/2 NS back to 200ml/hr with improved pressures. Mg 1.9 this am - mag oxide 500mg started PO daily. Phos 2.4. BNP 52. Hgb A1C > 14%. 02/08/21: Labs improving, K 3.8 at midnight at 4.4 this am. Na stable. Mg stable 2.1 with PO supplementation. Phos low this am 1.8 - started PO supplement BID. Glucose 354 at midnight, 260 this morning. Plan to decrease rate of IVF as labs improving. Patient irritable, concerned about her dog and states she did not think that she would be here this long, appears annoyed and rolls her eyes. Possible discharge tomorrow based on clinical course. Repeat BMP, Mg, Phos Tuesday. Hospitalization problems and plan: # Hyperosmolar hyperglycemic nonketotic syndrome - Initial blood glucose > 600. Insulin of 15units regular sub-q given in ER. Repeat glucose of 541 after admission. Blood glucose improving with initiation of sliding scale insulin once K reached > 3.3. Starting metformin and lantus with continuation of sliding scale. - Continue scale started last evening with QID accuchecks - Add metformin XL 500mg PO BID and lantus 10 units daily today - IVF changed last night to 1/2 NS with 20mEq KCl; decreased rate to 125ml/hr this am # Hypokalemia - Initial result of 2.5 in ER - suspect further decrease in K due to insulin administration in ER prior to admission. K gradually improving - 4.4 this morning. - continue telemetry - will DC this afternoon if K remains stable - Recheck BMP at 1400 this afternoon - Continue IVF with KCl added # Hypomagnesemia - Mg 1.9 on 02/07, improved to 2.1 this morning - Continue mag oxide 500mg PO daily # Hypophosphatemia - Phos 2.4 yesterday am, decreased to 1.8 today. - Phosphate PO supplementation BID started today - Repeat Phos in am. Chronic, stable conditions: # HTN - continue metoprolol 25mg PO BID # CAD with hx of PCI - continue aspirin 81mg PO daily, plavix 75mg PO daily # Dyspnea on exertion # Familial hypercholesterolemia - continue rosuvastatin 20mg PO daily # Diabetes mellitus, type II - no current medications upon admission - used to b e on metformin and tresiba - restart anti-diabetic medications upon discharge # Medication non-compliance Hospitalization details: # FEN: 1/2 NS with KCl @ 125ml/hr, Mg/Phos PO supplementation, heart healthy/diabetic diet # PPX: On plavix, ASA # Code status: DNR/DNI # Emergency contact: Valentine Peterson - updated on rounds today # Disposition: Will maintain inpatient status for additional lab monitoring and further optimization of electrolytes, initiation of anti-diabetic medications. Discharge planning to be based on clinical course, possible discharge tomorrow if continues to improve.
[2021-02-08 14:20] LABS: ANION GAP 14.8 mmol/L (5-15); CHLORIDE,CL 105 mmol/L (98-107); SODIUM,NA 137 mmol/L (136-145)
[2021-02-08] MEDS: Rosuvastatin 10 MG Tab PO SCH (20:49)
[2021-02-09] MEDS: Insulin Aspart 100 Units/ML 3 ML Pen SUBCUT SCH ×2 (07:57→13:08)
[2021-02-09] MEDS: metFORMIN 500 MG Tab.ER PO SCH (07:57)
[2021-02-09 08:09] LABS: ANION GAP 11.5 mmol/L (5-15); CHLORIDE,CL 107 mmol/L (98-107); SODIUM,NA 137 mmol/L (136-145)
--- NOTE | 2021-02-09 09:12 | PCM.DCSUM1 ---
Discharge Summary - Hospital Course Free Text/Narrative:: Date of admission: 02/06/21 Date of discharge: 02/09/21 Admission diagnoses: # Hyperosmolar hyperglycemic nonketotic syndrome # Hypokalemia Discharge diagnoses: # HTN - continue metoprolol 25mg PO BID # CAD with hx of PCI - continue aspirin 81mg PO daily, plavix 75mg PO daily # Dyspnea on exertion # Familial hypercholesterolemia - continue rosuvastatin 20mg PO daily # Diabetes mellitus, type II: Uncontrolled - Restarted patient on metformin XL PO BID, lantus 12 units daily for initial management. Rx for new glucometer and supplies provided at discharge. Patient to monitor blood glucose two times daily. # Hypokalemia - continue PO supplementation of 20mEq daily # Hypomagnesemia - continue mag oxide 500mg PO daily # Hypophosphatemia - continue neutraphos 250mg PO BID # Medication non-compliance Hospital course: HPI summary: Anjana is a 70y F patient who presented to the ER with c/o elevated blood sugars with polydipsia, polyuria and lightheadedness which has been occurring intermittently for the past week. She has been non-compliant with her insulin for her diabetes due to cost. She states she has not checked her blood sugar in over a year and she drinks a lot of coca-cola. She denies chest pain, shortness of breath, diaphoresis, N/V. No fever or chills. She denies dysuria, has been having urinary frequency for the past two weeks. She is alert and oriented. PMH of atherosclerotic heart disease with multivessel involvement. PCI to OM and LCX in 11/03 followed by PCI to RCA and LAD in 12/04; HTN, HLD, DMII. Last echo in 2018 - Normal EF of 65-70%, no indication of systolic or diastolic dysfunction. Patient to be admitted to [facility] inpatient service for correction of electrolytes, fluid resuscitation and insulin administration due to severe hyperglycemia. ED course: Vitals stable. CBC unremarkable. Na 144, K 2.5, Creatinine 1.18, BS > 600. Patient given a 1L NS bolus and 15 units regular insulin sub-q. VBG without indication of acidosis. Urine negative for ketones. CXR without acute process. 02/06/21: Patient resting in hospital bed upon admission. Endorses still feeling lightheaded. No other complaints. Requesting a coca-cola and a cheeseburger. Lung sounds clear, HRR. No edema. Blood glucose 541 upon recheck after sub-q insulin given in ER. Will obtain Hgb A1C and BNP. KCl IV 20mEq to be given with BMP following - will continue to replace by IV until K is 3.3. Patient placed on telemetry given hypokalemia. IV fluids to be continued 1/2 NS due to corrected Na of ~ 144 prior to NS bolus in ER. Will infuse at 200ml/hr for 2 hours then decrease to 100ml/hr. 02/07/21: Patient feeling better today. Repeated BMP overnight with improvement in K to 2.3 this morning after 40mEq KCl IV, 20mEq IV and 20mEq PO given this morning with repeat K of 3.0 at noon. Additional 20mEq IV and 20mEq PO ordered, repeat BMP at 1600. Glucose 307 this morning and 304 at noon. Will hold off on sliding scale insulin until K > 3.3. Blood pressure soft this am, increased IVF of 1/2 NS back to 200ml/hr with improved pressures. Mg 1.9 this am - mag oxide 500mg started PO daily. Phos 2.4. BNP 52. Hgb A1C > 14%. 02/08/21: Labs improving, K 3.8 at midnight at 4.4 this am. Na stable. Mg stable 2.1 with PO supplementation. Phos low this am 1.8 - started PO supplement BID. Glucose 354 at midnight, 260 this morning. Plan to decrease rate of IVF as labs improving. Patient irritable, concerned about her dog and states she did not think that she would be here this long, appears annoyed and rolls her eyes. Possible discharge tomorrow based on clinical course. Repeat BMP, Mg, Phos Tuesday am. 02/09/21: Patient denies dizziness, no new symptoms is feeling better. Vital stable. Na 137, K 4.5, Mg 2.0, Phos 2.2, glucose 183. Renal function stable. Patient to continue electrolyte supplementation upon discharge and readdress need to continue at follow-up appointments based on repeat labs. Will discharge home today as labs significantly improved, patient tolerating oral intake well and voiding well. Discharge and follow-up recommendations: - Discharge to home per self care. Discussed with patient that her condition has been stabilized during her hospitalization and it is up to her to follow- through with the recommendations to be successful going forward. Discussed that medication doses may need to be increased from initial dosing at discharge. Patient strongly advised to follow-up regularly for her diabetes to ensure optimal management. Repeat Hgb A1C in 3 months. - New medications at discharge: Metformin XL 500mg PO BID, lantus 12 units daily, K-Dur 20mEq daily, Neutraphos 250mg PO BID, Mag oxide 500mg PO daily. Prescription for new contour next glucometer and testing supplies - patient to monitor blood glucose twice daily in am and HS. - Follow-up at [facility] on , 02/12/21 at 10:30 for post- hospitalization follow-up and repeat labs: BMP, Mg, Phos - Discharge Data Discharge Date: 02/09/21 Discharge Disposition: Home, Self-Care 01 Condition: Good - Referral to Home Health Primary Care Physician: Karen Perrin MD - Patient Instructions Diet: Heart Healthy Diet, Diabetic Diet Driving: Do Not Drive Showering/Bathing: May Shower Other/Special Instructions: Monitor blood glucose two times daily am and bedtime - Discharge Plan *PRESCRIPTION DRUG MONITORING PROGRAM REVIEWED*: Not Applicable *COPY OF PRESCRIPTION DRUG MONITORING REPORT IN PATIENT TWYLA: Not Applicable Prescriptions/Med Rec: Insulin Glargine,Hum.Rec.Anlog [Lantus Solostar] 12 units SQ DAILY #1 ml Potassium Chloride 20 meq PO DAILY #30 tablet.er Home Medications: Home Meds Aspirin [Ecotrin EC] 81 mg PO DAILY 11/10/16 [History] Metoprolol Tartrate 25 mg PO BID 11/10/16 [History] Clopidogrel [Plavix] 75 mg PO DAILY 02/06/21 [History] Rosuvastatin Calcium 20 mg PO BEDTIME 02/06/21 [History] Insulin Glargine,Hum.Rec.Anlog [Lantus Solostar] 12 units SQ DAILY #1 ml 02/09/21 [Rx] Magnesium Oxide 500 mg PO DAILY tablet 02/09/21 [Rx] Phosphorus #1 [Neutra-Phos] 250 mg PO BID tablet 02/09/21 [Rx] Potassium Chloride 20 meq PO DAILY #30 tablet.er 02/09/21 [Rx] metFORMIN [Glucophage XR] 500 mg PO BIDMEALS tab.er 02/09/21 [Rx] Oxygen Therapy Mode: Room Air Referrals: Angelica Huff PA-C [Physician Advertising Director] - 02/12/21 10:30 am (Follow-up at [facility]. ) - Discharge Summary/Plan Comment DC Time >30 min.: Yes Total # of Minutes for Discharge Time: 45 - General Info Date of Service: 02/09/21 Functional Status: Reports: Pain Controlled, Tolerating Diet, Ambulating, Urinating. Denies: New Symptoms - Review of Systems General: Reports: No Symptoms HEENT: Reports: No Symptoms Pulmonary: Reports: No Symptoms Cardiovascular: Reports: No Symptoms Gastrointestinal: Reports: No Symptoms Genitourinary: Reports: No Symptoms Musculoskeletal: Reports: No Symptoms Skin: Reports: No Symptoms Neurological: Reports: No Symptoms Psychiatric: Reports: No Symptoms - Patient Data Vitals - Most Recent: Last Vital Signs Temp 97.4 F 02/09/21 05:29 Pulse 68 02/09/21 05:29 Resp 20 02/09/21 05:29 BP 138/59 L 02/09/21 05:29 Pulse Ox 98 02/09/21 05:29 Weight - Most Recent: 142 lb 12.8 oz I&O - Last 24 hours: Intake & Output 02/08/21 02/09/21 02/09/21 22:59 06:59 14:59 Intake Total 1096 689 Output Total 500 1000 Balance 596 -311 Lab Results - Last 24 hrs: Laboratory Results - last 24 hr 02/08/21 02/08/21 02/08/21 Range/Units 09:35 11:41 13:59 Sodium 137 (136-145) mmol/L Potassium 4.5 (3.5-5.1) mmol/L Chloride 105 (98-107) mmol/L Carbon Dioxide 21.7 (21.0-32.0) mmol/L Anion Gap 14.8 (5-15) mmol/L BUN 9 (7-18) mg/dL Creatinine 0.84 (0.51-1.17) mg/dL Est Cr Clr Drug Dosing 50.08 mL/min Estimated GFR (MDRD) > 60 mL/min Glucose 334 H (70-140) mg/dL POC Glucose 263 H 288 H (70-140) mg/dL Calcium 8.4 L (8.7-10.3) mg/dL Phosphorus (2.6-4.7) mg/dL Magnesium (1.8-2.4) mg/dL 02/08/21 02/08/21 02/09/21 Range/Units 17:24 20:45 07:05 Sodium 137 (136-145) mmol/L Potassium 4.5 (3.5-5.1) mmol/L Chloride 107 (98-107) mmol/L Carbon Dioxide 23.0 (21.0-32.0) mmol/L Anion Gap 11.5 (5-15) mmol/L BUN 7 (7-18) mg/dL Creatinine 0.90 (0.51-1.17) mg/dL Est Cr Clr Drug Dosing 46.74 mL/min Estimated GFR (MDRD) > 60 mL/min Glucose 183 H (70-140) mg/dL POC Glucose 265 H 211 H (70-140) mg/dL Calcium 8.5 L (8.7-10.3) mg/dL Phosphorus 2.2 L (2.6-4.7) mg/dL Magnesium 2.0 (1.8-2.4) mg/dL Med Orders - Current: Current Medications Acetaminophen (Acetaminophen 325 Mg Tab) 650 mg PO Q6H PRN PRN Reason: Pain Last Admin: 02/07/21 03:09 Dose: 650 mg Documented by: Aspirin (Aspirin 81 Mg Tab.Ec) 81 mg PO DAILY [facility] Last Admin: 02/08/21 08:03 Dose: 81 mg Documented by: Clopidogrel Bisulfate (Clopidogrel 75 Mg Tab) 75 mg PO DAILY [facility] Last Admin: 02/08/21 08:03 Dose: 75 mg Documented by: Dextrose/Water (50% Dextrose In Water 50 Ml Syringe) 50 ml IVPUSH ASDIRECTED PRN PRN Reason: Hypoglycemia Glucagon (Glucagon,Human Recombinant 1 Mg Vial) 1 mg IM ASDIRECTED PRN PRN Reason: Hypoglycemia Potassium Chloride/Sodium Chloride (1/2 Ns With 20 Meq Kcl) 1,000 mls @ 75 mls/hr IV ASDIRECTED [facility] Last Admin: 02/09/21 03:23 Dose: 75 mls/hr Documented by: Insulin Aspart (Insulin Aspart 100 Units/Ml 3 Ml Pen) 0 unit SUBCUT WITHMEALSANDBED [facility]; Protocol Last Admin: 02/09/21 07:57 Dose: 2 units Documented by: Insulin Glargine (Insulin Glargine,Hum.Rec.Anlog 100 Unit/Ml 3 Ml Pen) 10 unit SUBCUT DAILY [facility] Last Admin: 02/08/21 09:36 Dose: 10 units Documented by: Magnesium Oxide (Magnesium Oxide 500 Mg Tab) 500 mg PO DAILY [facility] Last Admin: 02/08/21 08:03 Dose: 500 mg Documented by: Metformin HCl (Metformin 500 Mg Tab.Er) 500 mg PO BIDMEALS [facility] Last Admin: 02/09/21 07:57 Dose: 500 mg Documented by: Metoprolol Tartrate (Metoprolol Tartrate 25 Mg Tab) 25 mg PO BID [facility] Last Admin: 02/08/21 20:49 Dose: 25 mg Documented by: Rosuvastatin Calcium (Rosuvastatin 10 Mg Tab) 20 mg PO BEDTIME [facility] Last Admin: 02/08/21 20:49 Dose: 20 mg Documented by: Sodium Phosphate (Phosphorus #1 250 Mg Tab) 250 mg PO BID [facility] Last Admin: 02/08/21 20:49 Dose: 250 mg Documented by: Discontinued Medications Sodium Chloride (Normal Saline) 1,000 mls @ 999 mls/hr IV .BOLUS ONE Stop: 02/06/21 21:55 Last Admin: 02/06/21 21:28 Dose: 999 mls/hr Documented by: Sodium Chloride (Normal Saline) 1,000 mls @ 200 [facility] Admin: 02/06/21 23:08 Dose: 200 mls/hr Documented by: Potassium Chloride 20 meq/ (Premix) 100 mls @ 50 mls/hr IV ONETIME ONE Stop: 02/07/21 01:35 Last Admin: 02/07/21 00:25 Dose: 50 mls/hr Documented by: Sodium Chloride (Sodium Chloride 0.45%) 1,000 mls @ 200 mls[facility] Last Admin: 02/07/21 08:19 Dose: 100 mls/hr Documented by: Potassium Chloride 20 meq/ (Premix) 100 mls @ 50 mls/hr IV ONETIME ONE Stop: 02/07/21 05:47 Last Admin: 02/07/21 03:58 Dose: 50 mls/hr Documented by: Potassium Chloride 20 meq/ (Premix) 100 mls @ 50 mls/hr IV ONETIME ONE Stop: 02/07/21 10:06 Last Admin: 02/07/21 08:45 Dose: 50 mls/hr Documented by: Sodium Chloride (Sodium Chloride 0.45%) 1,000 mls @ 200 mls/hr IV ASDIRECTED [facility] Last Admin: 02/07/21 19:30 Dose: 200 mls/hr Documented by: Potassium Chloride 20 meq/ (Premix) 100 mls @ 50 mls/hr IV ONETIME ONE Stop: 02/07/21 14:19 Last Admin: 02/07/21 12:46 Dose: 50 mls/hr Documented by: Potassium Chloride 20 meq/ (Premix) 100 mls @ 50 mls/hr IV ONETIME ONE Stop: 02/07/21 18:41 Last Admin: 02/07/21 16:58 Dose: 50 mls/hr Documented by: Potassium Chloride/Sodium Chloride (1/2 Ns With 20 Meq Kcl) 1,000 mls @ 200 mls/hr IV ASDIRECTED [facility] Last Infusion: 02/08/21 09:04 Dose: 125 mls/hr Documented by: Potassium Chloride/Sodium Chloride (1/2 Ns With 20 Meq Kcl) 1,000 mls @ 125 mls/hr IV ASDIRECTED [facility] Last Infusion: 02/08/21 14:54 Dose: 75 mls/hr Documented by: Insulin Human Regular (Insulin Regular, Human 100 Units/Ml 10 Ml Vial) 15 unit SUBCUT ONETIME ONE Stop: 02/06/21 21:32 Last Admin: 02/06/21 22:08 Dose: 15 units Documented by: Potassium Chloride (Potassium Chloride 20 Meq Packet) 20 meq PO ONETIME ONE Stop: 02/07/21 08:16 Last Admin: 02/07/21 08:46 Dose: 20 meq Documented by: Potassium Chloride (Potassium Chloride 20 Meq Packet) 20 meq PO ONETIME ONE Stop: 02/07/21 12:23 Last Admin: 02/07/21 12:45 Dose: 20 meq Documented by: Potassium Chloride (Potassium Chloride 20 Meq Packet) 20 meq PO ONETIME ONE Stop: 02/07/21 16:43 Last Admin: 02/07/21 16:58 Dose: 20 meq Documented by: Potassium Chloride (Potassium Chloride 20 Meq Packet) 20 meq PO ONETIME ONE Stop: 02/07/21 17:46 Last Admin: 02/07/21 18:01 Dose: 20 meq Documented by: Sodium Chloride (Sodium Chloride 0.9% 10 Ml Syringe) 10 ml FLUSH Q8HR PRN PRN Reason: keep vein open - Exam Quality Assessment: Denies: Supplemental Oxygen General: Reports: Alert, Oriented, No Acute Distress, Other (irritable) HEENT: Reports: Pupils Equal, Mucous Membr. Moist/Soldier Neck: Reports: Supple Lungs: Reports: Clear to Auscultation, Normal Respiratory Effort Cardiovascular: Reports: Regular Rate, Regular Rhythm, No Murmurs GI/Abdominal Exam: Normal Bowel Sounds, Soft, Non-Tender, No Distention (Female) Exam: Deferred Rectal (Female) Exam: Deferred Back Exam: Reports: Normal Inspection, Full Range of Motion Extremities: Normal Inspection, Normal Range of Motion, Non-Tender, No Pedal Edema, Normal Capillary Refill Skin: Reports: Warm, Dry, Intact Neurological: Reports: No New Focal Deficit Psy/Mental Status: Reports: Alert, Other (irritable)
[2021-02-09] MEDS: Magnesium Oxide 500 MG Tab PO SCH (09:13)
[2021-02-09] MEDS: Phosphorus #1 250 MG Tab PO SCH (09:13)
[2021-02-09] MEDS: Aspirin 81 MG Tab.EC PO SCH (09:13)
[2021-02-09] MEDS: Clopidogrel 75 MG Tab PO SCH (09:13)
[2021-02-09] MEDS: Metoprolol Tartrate 25 MG Tab PO SCH (09:14)
[2021-02-09] MEDS: Insulin Glargine,Hum.Rec.Anlog 100 UNIT/ML 3 ML Pen SUBCUT SCH (09:14)
[2021-02-09 09:15] VITALS: BP 136/59; PULSE 86
== END 2021-02-09 12:45 | disposition home or self-care (01) | DRG 639 ==
LOC: KA.ED 20:43 → KA.MS 22:25 → UNDOADMIN 22:25
PROVIDERS: ADMIT Physician Assistant Medical; ATTEND Nurse Practitioner Family
DX: E10.65 Type 1 diabetes mellitus with hyperglycemia (principal); E11.00 Type 2 diabetes mellitus with hyperosmolarity without nonketotic hyperglycemic-hyperosmolar coma (NKHHC); E87.6 Hypokalemia; I10 Essential (primary) hypertension; I25.10 Atherosclerotic heart disease of native coronary artery without angina pectoris; Z66 Do not resuscitate; E78.01 Familial hypercholesterolemia; H54.7 Unspecified visual loss; E83.42 Hypomagnesemia; Z20.822 Contact with and (suspected) exposure to COVID-19; E83.39 Other disorders of phosphorus metabolism; E78.5 Hyperlipidemia, unspecified; E11.65 Type 2 diabetes mellitus with hyperglycemia; I25.2 Old myocardial infarction; Z79.899 Other long term (current) drug therapy; Z91.19 Patient's noncompliance with other medical treatment and regimen; Z79.4 Long term (current) use of insulin; Z79.82 Long term (current) use of aspirin; Z79.02 Long term (current) use of antithrombotics/antiplatelets; Z98.49 Cataract extraction status, unspecified eye; Z90.89 Acquired absence of other organs; Z95.5 Presence of coronary angioplasty implant and graft; Z98.51 Tubal ligation status
CPT/HCPCS: 36415; 71046; 80048; 80053; 81001; 82803; 82947; 83036; 83735; 83880; 84075; 84100; 85025; 93005; 99284; 99285-25; A9270-GY; J1815-GY; J3480; J7030; U0002